=== PATIENT | male | born 1955 | race Caucasian/White ===

== ENCOUNTER 2019-11-28 01:28 | Inpatient (IN) ==
[2019-11-28] MEDS ORDERED: ONDANSETRON INJ 2 MG/ML 2 ML VIAL IV STA (01:52)
[2019-11-28 02:08] LABS: Basophils # (auto) 0.02 K/uL (0-0.2); Basophils % (auto) 0.2 %; Eosinophils # (auto) 0.19 K/uL (0-0.5); Eosinophils % (auto) 2.1 %; Hemoglobin 14.7 g/dL (14.0-18.0); Immature Granulocytes # (auto) 0.02 K/uL (0.00-0.02); Immature Granulocytes % (auto) 0.2 %; Lymphocytes # (auto) 0.91 K/uL (1.2-3.4); Lymphocytes % (auto) 10.1 %; Mean Corpuscular Hemoglobin 28.4 pg (25-34); Mean Corpuscular Hgb Conc 34.2 g/dL (32-36); Mean Platelet Volume 9.7 fL (7.4-10.4); Monocytes # (auto) 0.64 K/uL (0.11-0.59); Monocytes % (auto) 7.1 %; Neutrophils # (auto) 7.22 K/uL (1.4-6.5); Neutrophils % (auto) 80.3 %; Platelet Count 187 K/uL (130-400); RDW Coefficient of Variation 14.3 % (11.5-14.5); RDW Standard Deviation 43.2 fL (36.4-46.3); Red Blood Count 5.18 M/uL (4.7-6.1)
[2019-11-28 02:27] LABS: Albumin Level 3.2 gm/dl (3.4-5.0); BUN Creatinine Ratio 12.7 (10-20); Calcium 9.4 mg/dl (8.5-10.1); Creatinine Clr Calc Pharmacy 89.8 ml/min; Est GFR (African American) 78.1; Est GFR (Non-African American) 67.4; Potassium 3.8 mmol/L (3.5-5.1)
[2019-11-28 02:33] LABS: Albumin Globulin Ratio 0.9 (0.9-2); Bilirubin,Total 0.7 mg/dl (0.2-1); Globulin 3.4 gm/dl (2.5-4.0); Total Protein 6.6 gm/dl (6.4-8.2); Troponin I 0.017 ng/ml (0-0.045)
[2019-11-28 02:55] LABS: Appearance Urine Clear (Clear); Bilirubin Urine Negative (Negative); Blood Urine Negative (Negative); Color Urine Yellow; Glucose Urine UA Negative (Negative); Ketones Urine Negative (Negative); Leukocyte Esterase Urine Negative (Negative); Nitrite Urine Negative (Negative); Protein Urine Negative (Negative); Specific Gravity Urine 1.018 (1.000-1.030); Urobilinogen Urine Negative (Negative); pH Urine 6.5 (4.5-7.5)
[2019-11-28] MEDS ORDERED: ACETAMINOPHEN 1,000 MG/100 ML VIAL IV STA (03:06)
[2019-11-28] MEDS ORDERED: SODIUM CHLORIDE 0.9% 1000ML 1,000 ML IV ONE (03:06)
[2019-11-28] MEDS ORDERED: IOVERSOL 100ml IV PRN (03:49)
[2019-11-28] MEDS ORDERED: DICYCLOMINE HCL 10 MG/ML 2 ML AMP/VIAL IM ONE (05:07)
[2019-11-28] MEDS ORDERED: METOCLOPRAMIDE HCL INJ 5 MG/ML 2 ML VIAL IV ONE (05:43)
--- NOTE | 2019-11-28 06:17 | Emergency Department Note ---
Entered by Ricky Mina acting as a scribe for History of Present Illness General Chief complaint: Abdominal Pain Stated complaint: ABDOMINAL PAIN Time Seen by Provider: 11/28/19 02:39 Source: patient History of Present Illness Provider complaint: Abdominal pain Onset (ago): hour(s) 8 Location: abdomen Radiation: non-radiation Severity: similar to prior episodes Pain Consistency: + constant Maximum Pain Intensity: 8 Current Pain Intensity: 8 Associated symptoms: + denies other symptoms (Urinary symptoms) and + nausea/vomiting The patient is a 64 year old male who presents to the Emergency Room with complaints of constant abdominal pain that started this evening about 8 hours ago. The patient rates the pain as an 8/10 and notes it does not radiate anywhere. The patient reports that he had a colonoscopy this morning where he had 2 polyps removed. The patient states that one polyp was difficult for them to remove but he did not have any pain immediately after the procedure. The patient adds that he was able to eat twice after the procedure with no issues. The patient states that he passed a lot of gas after the procedure but he still feels as though he has a lot of gas in his abdomen. The patient mentioned that he called the on-call doctor who referred him here. The patient endorses nausea and notes he has been dry heaving when the pain is bad. The patient states he tried to take a warm bath to relieve his symptoms but this only helped for about 15 minutes. The patient denies any fevers or urinary symptoms. Home Medications Home Medications Medication Instructions Recorded Confirmed Type carvedilol 3.125 mg PO BID 11/28/19 11/28/19 History losartan 50 mg PO BID 11/28/19 11/28/19 History triamcinolone acetonide TOPICAL PRN 11/28/19 History Allergies Allergy/AdvReac Type Severity Reaction Status Date / Time No Known Allergies Allergy Unverified 11/28/19 01:37 Past Med/Surg History Medical History Abdominal pain (Acute) Hypertension Obesity Surgical History History of Achilles tendon repair S/P colonoscopy (Inactive) Family History Father Cancer Colon cancer Social History Preferred Language: Yi Communication Ability: Effective [place] Required: No Beliefs That Will Affect Care: None Current Living Situation: Spouse Feels Safe at Home: Yes Smoking Status: Former smoker Hx Alcohol Use: No Hx Substance Use: No Review of Systems See HPI for pertinent positives & negatives. and A total of 10 systems reviewed and were otherwise negative Physical Exam Vital Signs Vital Signs - 24 hr 11/28/19 01:34 11/28/19 01:57 11/28/19 02:43 Temperature 36.8 C Temperature Source Oral Pulse Rate 53 L 53 L 48 L Pulse Rate [Right Finger] Respiratory Rate 20 20 14 Respiratory Effort / Characteristics Non-Labored Spontaneous Respiratory Depth Normal Respiratory Pattern Blood Pressure 202/94 H 178/88 H Blood Pressure [Left Arm] Blood Pressure Mean 130 103 Blood Pressure Mean [Left Arm] Blood Pressure Position Sitting Blood Pressure Position [Left Arm] Pulse Oximetry 97 97 Oxygen Delivery Method Room Air Room Air Sepsis Recent Fever Within 48 Hours No Sepsis Action Taken by Nursing No Action Required 11/28/19 03:00 11/28/19 03:29 11/28/19 03:30 Temperature Temperature Source Pulse Rate 53 L 52 L Pulse Rate [Right Finger] 49 L Respiratory Rate 19 20 16 Respiratory Effort / Characteristics Non-Labored Spontaneous Respiratory Depth Normal Respiratory Pattern Regular Blood Pressure Blood Pressure [Left Arm] 190/88 H Blood Pressure Mean Blood Pressure Mean [Left Arm] 122 Blood Pressure Position Blood Pressure Position [Left Arm] Sitting Pulse Oximetry 96 Oxygen Delivery Method Room Air Sepsis Recent Fever Within 48 Hours Sepsis Action Taken by Nursing 11/28/19 03:46 11/28/19 04:07 11/28/19 04:08 Temperature Temperature Source Pulse Rate 52 L 54 L 57 L Pulse Rate [Right Finger] Respiratory Rate 22 21 15 Respiratory Effort / Characteristics Respiratory Depth Respiratory Pattern Blood Pressure 190/88 H 206/98 H Blood Pressure [Left Arm] Blood Pressure Mean 127 128 Blood Pressure Mean [Left Arm] Blood Pressure Position Blood Pressure Position [Left Arm] Pulse Oximetry Oxygen Delivery Method Sepsis Recent Fever Within 48 Hours Sepsis Action Taken by Nursing 11/28/19 04:30 11/28/19 05:17 11/28/19 07:08 Temperature Temperature Source Pulse Rate 56 L Pulse Rate [Right Finger] 49 L 48 L Respiratory Rate 13 16 16 Respiratory Effort / Characteristics Non-Labored Spontaneous Respiratory Depth Normal Respiratory Pattern Regular Blood Pressure Blood Pressure [Left Arm] 156/70 H 169/91 H Blood Pressure Mean Blood Pressure Mean [Left Arm] 98 117 Blood Pressure Position Blood Pressure Position [Left Arm] Sitting Pulse Oximetry 96 97 Oxygen Delivery Method Room Air Room Air Sepsis Recent Fever Within 48 Hours Sepsis Action Taken by Nursing 11/28/19 08:35 11/28/19 09:34 Temperature Temperature Source Pulse Rate Pulse Rate [Right Finger] 48 L 47 L Respiratory Rate 16 16 Respiratory Effort / Characteristics Respiratory Depth Respiratory Pattern Blood Pressure Blood Pressure [Left Arm] 189/88 H 189/99 H Blood Pressure Mean Blood Pressure Mean [Left Arm] 121 129 Blood Pressure Position Blood Pressure Position [Left Arm] Pulse Oximetry 98 96 Oxygen Delivery Method Room Air Room Air Sepsis Recent Fever Within 48 Hours Sepsis Action Taken by Nursing GENERAL: alert, well appearing, well nourished, no distress, non-toxic EYE EXAM: normal conjunctiva, PERRL and EOM's grossly intact OROPHARYNX: no exudate, no erythema, lips, buccal mucosa, and tongue normal and mucous membranes are moist NECK: supple, no nuchal rigidity, no adenopathy, non-tender LUNGS: Clear to auscultation. Normal chest wall mechanics HEART: no murmurs, S1 normal and S2 normal ABDOMEN: abdomen soft, left sided abdominal tenderness, dull to percussion, normo-active bowel sounds, no masses, no rebound or guarding. BACK: Back is symmetrical on inspection and there is no deformity, no midline tenderness, no CVA tenderness. SKIN: no rashes and no bruising UPPER EXTREMITIES: upper extremities are grossly normal. FROM, nml pulses b/l. LOWER EXTREMITIES: No pitting edema. FROM, nml pulses b/l. NEURO EXAM: Normal sensorium, cranial nerves II-XII grossly intact, normal speech, no gross weakness of arms, no gross weakness of legs. Course Course 0257: Past medical records reviewed. The patient was evaluated in room C03, and a complete history and physical examination were performed. 0531: I reevaluated the patient and he is still experiencing pain. 0645: Patient still having pain. Updated on results. 0800: Patient updated on over read by radiology. Still having pain. Is passing gas. 0807: Discussed with radiology there morning read. Nonocclusive thrombus appears old. They are more concerned about evolving cholecystitis. 0815: Discussed the case with Dr. Beyer, general surgery on-call. 0940: Pt awaiting HIDA scan. Dr. Beyer has seen the patient at bedside. Pt aware of plan. Pt signed out to Dr. Lenz pending HIDA and disposition. Administered Medications Carvedilol (Coreg) 3.125 mg PO BID CAPRI Stop: 12/28/19 15:29 Last Admin: 11/29/19 20:32 Dose: Not Given Documented by: [id number] Admin: 11/29/19 08:37 Dose: 3.125 mg Documented by: [id number] Admin: 11/28/19 22:59 Dose: 3.125 mg Documented by: [id number] Admin: 11/28/19 17:05 Dose: 3.125 mg Documented by: [id number] Piperacillin Sod/Tazobactam (Sod 4.5 gm/ Dextrose) 120 mls @ 28.75 mls/hr IV Q8H CAPRI; Protocol Stop: 12/08/19 19:59 Last Admin: 11/29/19 20:35 Dose: 28.8 mls/hr Documented by: [id number] Infusion: 11/29/19 16:50 Dose: 0 mls/hr Documented by: [id number] Admin: 11/29/19 12:03 Dose: 28.8 mls/hr Documented by: [id number] Infusion: 11/29/19 07:13 Dose: 0 mls/hr Documented by: [id number] Admin: 11/29/19 03:50 Dose: 28.8 mls/hr Documented by: [id number] Infusion: 11/28/19 23:30 Dose: 0 mls/hr Documented by: [id number] Admin: 11/28/19 19:32 Dose: 28.8 mls/hr Documented by: [id number] Lactated Ringer's (Lr) 1,000 mls @ 80 mls/hr IV .[id number] CAPRI Stop: 12/29/19 13:29 Last Admin: 11/29/19 14:43 Dose: 80 mls/hr Documented by: [id number] Ketorolac Tromethamine (Toradol) 15 mg IV Q6H PRN PRN Reason: Pain Stop: 12/03/19 15:13 Last Admin: 11/28/19 16:30 Dose: 15 mg Documented by: [id number] Losartan Potassium (Cozaar) 50 mg PO BID CAPRI Stop: 12/28/19 15:29 Last Admin: 11/29/19 08:38 Dose: 50 mg Documented by: [id number] Admin: 11/28/19 22:59 Dose: 50 mg Documented by: [id number] Admin: 11/28/19 17:05 Dose: 50 mg Documented by: [id number] Oxycodone/Acetaminophen (Percocet 5mg/325mg) 1 tab PO Q4H PRN PRN Reason: MODERATE Pain (Scale 4,5,6) Stop: 12/12/19 22:47 Last Admin: 11/29/19 18:12 Dose: 1 tab Documented by: [id number] Admin: 11/29/19 12:36 Dose: 1 tab Documented by: [id number] Discontinued Medications Bupivacaine HCl (Marcaine 0.5% Mpf) Confirm Administered Dose 30 ml .ROUTE .STK- MED ONE Stop: 11/28/19 19:17 Last Admin: 11/28/19 20:19 Dose: 30 ml Documented by: [id number] Bupivacaine HCl (Marcaine 0.5% Mpf) Confirm Administered Dose 30 ml .ROUTE .STK- MED ONE Stop: 11/28/19 21:31 Last Admin: 11/28/19 22:51 Dose: Not Given Documented by: [id number] Dicyclomine HCl (Bentyl) 20 mg IM NOW ONE Stop: 11/28/19 05:08 Last Admin: 11/28/19 05:17 Dose: 20 mg Documented by: [id number] Fentanyl Citrate (Fentanyl Citrate) 50 mcg IV Q15M PRN PRN Reason: Pain Stop: 12/12/19 08:17 Last Admin: 11/28/19 08:33 Dose: 50 mcg Documented by: [id number] Acetaminophen (Ofirmev) 1,000 mg in 100 mls @ 400 mls/hr IV NOW STA Stop: 11/28/19 03:20 Last Infusion: 11/28/19 04:41 Dose: 0 mls/hr Documented by: [id number] Admin: 11/28/19 03:41 Dose: 400 mls/hr Documented by: [id number] Sodium Chloride (Nss 1000ml) 1,000 mls @ 999 mls/hr IV .[id number] ONE Stop: 11/28/19 04:06 Last Infusion: 11/28/19 04:41 Dose: 0 mls/hr Documented by: [id number] Admin: 11/28/19 03:41 Dose: 999 mls/hr Documented by: [id number] Lactated Ringer's (Lr) 1,000 mls @ 80 mls/hr IV .[id number] CAPRI Stop: 11/29/19 03:43 Last Infusion: 11/29/19 15:03 Dose: 0 mls/hr Documented by: [id number] Infusion: 11/28/19 23:30 Dose: 80 mls/hr Documented by: [id number] Infusion: 11/28/19 22:51 Dose: 80 mls/hr Documented by: [id number] Infusion: 11/28/19 19:25 Dose: 0 mls/hr Documented by: [id number] Admin: 11/28/19 17:25 Dose: 80 mls/hr Documented by: [id number] Piperacillin Sod/Tazobactam (Sod 4.5 gm/ Dextrose) 120 mls @ 200 mls/hr IV ONE ONE; Protocol Stop: 11/28/19 16:05 Last Infusion: 11/28/19 17:27 Dose: 0 mls/hr Documented by: [id number] Admin: 11/28/19 16:51 Dose: 200 mls/hr Documented by: [id number] Ioversol (Optiray 320 100ml) 92 ml IV ONCE PRN PRN Reason: Interaction Checking Stop: 12/02/19 03:48 Last Admin: 11/28/19 03:50 Dose: 1 ml Documented by: [id number] Ketorolac Tromethamine (Toradol) 15 mg IV Q6H PRN PRN Reason: Pain Stop: 12/03/19 09:40 Last Admin: 11/28/19 09:57 Dose: 15 mg Documented by: [id number] Metoclopramide HCl (Reglan) 5 mg IV ONE ONE Stop: 11/28/19 05:44 Last Admin: 11/28/19 05:47 Dose: 5 mg Documented by: [id number] Morphine Sulfate (Morphine Sulfate) 2 mg IV NOW STA Stop: 11/28/19 13:35 Last Admin: 11/28/19 14:21 Dose: 2 mg Documented by: [id number] Ondansetron HCl (Zofran) 4 mg IV NOW STA Stop: 11/28/19 01:53 Last Admin: 11/28/19 02:14 Dose: 4 mg Documented by: [id number] Medical Decision Making Differential Diagnosis Differential diagnoses includes but is not limited to post-procedural complications, gastritis, peptic ulcer disease, GERD, gallbladder disease, pancreatitis, small bowel obstruction, acute coronary syndrome, pericarditis, ischemic bowel, irritable bowel disease, irritable bowel syndrome, appendicitis, diverticulitis, malignancy, hernia, urinary tract infection, torsion, /ectopic , perforation, trauma, infectious. Medical Records Attestation: I reviewed the patient's medical records. Home Medications Current Medication List: was personally reviewed by me Laboratory Data Attestation: I reviewed the patient's lab results. Result diagrams: 11/29/19 06:33 11/29/19 06:33 Lab Results 11/28/19 11/28/19 11/28/19 Range/Units 01:55 01:55 02:45 WBC 9.00 (4.8-10.8) K/uL RBC 5.18 (4.7-6.1) M/uL Hgb 14.7 (14.0-18.0) g/dL Hct 43.0 (42-52) % MCV 83.0 (80-100) fL MCH 28.4 (25-34) pg MCHC 34.2 (32-36) g/dL RDW Std Deviation 43.2 (36.4-46.3) fL RDW Coeff of Nydia 14.3 (11.5-14.5) % Plt Count 187 (130-400) K/uL MPV 9.7 (7.4-10.4) fL Immature Gran % (Auto) 0.2 % Neut % (Auto) 80.3 % Lymph % (Auto) 10.1 % [place] % (Auto) 7.1 % Eos % (Auto) 2.1 % Baso % (Auto) 0.2 % Immature Gran # (Auto) 0.02 (0.00-0.02) K/uL Neut # (Auto) 7.22 H (1.4-6.5) K/uL Lymph # (Auto) 0.91 L (1.2-3.4) K/uL [place] # (Auto) 0.64 H (0.11-0.59) K/uL Eos # (Auto) 0.19 (0-0.5) K/uL Baso # (Auto) 0.02 (0-0.2) K/uL Sodium 140 (136-145) mmol/L Potassium 3.8 (3.5-5.1) mmol/L Chloride 108 H (98-107) mmol/L Carbon Dioxide 26 (21-32) mmol/L Anion Gap 6.0 (3-11) BUN 14 (7-18) mg/dl Creatinine 1.13 (0.6-1.4) mg/dl Est Cr Clr Drug Dosing 89.8 ml/min Est GFR ( Amer) 78.1 Est GFR (Non-Af Amer) 67.4 BUN/Creatinine Ratio 12.7 (10-20) Glucose 138 H (70-99) mg/dl Lactate (0.4-2.0) mmol/L Calcium 9.4 (8.5-10.1) mg/dl Total Bilirubin 0.7 (0.2-1) mg/dl AST 13 L (15-37) U/L ALT 25 (12-78) U/L Alkaline Phosphatase 47 (45-117) U/L Troponin I 0.017 (0-0.045) ng/ml Total Protein 6.6 (6.4-8.2) gm/dl Albumin 3.2 L (3.4-5.0) gm/dl Globulin 3.4 (2.5-4.0) gm/dl Albumin/Globulin Ratio 0.9 (0.9-2) Lipase 163 (73-393) U/L Urine Color Yellow Urine Appearance Clear (Clear) Urine pH 6.5 (4.5-7.5) Ur Specific [place] 1.018 (1.000-1.030) Urine Protein Negative (Negative) Urine Glucose (UA) Negative (Negative) Urine Ketones Negative (Negative) Urine Blood Negative (Negative) Urine Nitrite Negative (Negative) Urine Bilirubin Negative (Negative) Urine Urobilinogen Negative (Negative) Ur Leukocyte Esterase Negative (Negative) 11/28/19 Range/Units 08:57 WBC (4.8-10.8) K/uL RBC (4.7-6.1) M/uL Hgb (14.0-18.0) g/dL Hct (42-52) % MCV (80-100) fL MCH (25-34) pg MCHC (32-36) g/dL RDW Std Deviation (36.4-46.3) fL RDW Coeff of Nydia (11.5-14.5) % Plt Count (130-400) K/uL MPV (7.4-10.4) fL Immature Gran % (Auto) % Neut % (Auto) % Lymph % (Auto) % [place] % (Auto) % Eos % (Auto) % Baso % (Auto) % Immature Gran # (Auto) (0.00-0.02) K/uL Neut # (Auto) (1.4-6.5) K/uL Lymph # (Auto) (1.2-3.4) K/uL [place] # (Auto) (0.11-0.59) K/uL Eos # (Auto) (0-0.5) K/uL Baso # (Auto) (0-0.2) K/uL Sodium (136-145) mmol/L Potassium (3.5-5.1) mmol/L Chloride (98-107) mmol/L Carbon Dioxide (21-32) mmol/L Anion Gap (3-11) BUN (7-18) mg/dl Creatinine (0.6-1.4) mg/dl Est Cr Clr Drug Dosing ml/min Est GFR ( Amer) Est GFR (Non-Af Amer) BUN/Creatinine Ratio (10-20) Glucose (70-99) mg/dl Lactate 1.1 (0.4-2.0) mmol/L Calcium (8.5-10.1) mg/dl Total Bilirubin (0.2-1) mg/dl AST (15-37) U/L ALT (12-78) U/L Alkaline Phosphatase (45-117) U/L Troponin I (0-0.045) ng/ml Total Protein (6.4-8.2) gm/dl Albumin (3.4-5.0) gm/dl Globulin (2.5-4.0) gm/dl Albumin/Globulin Ratio (0.9-2) Lipase (73-393) U/L Urine Color Urine Appearance (Clear) Urine pH (4.5-7.5) Ur Specific [place] (1.000-1.030) Urine Protein (Negative) Urine Glucose (UA) (Negative) Urine Ketones (Negative) Urine Blood (Negative) Urine Nitrite (Negative) Urine Bilirubin (Negative) Urine Urobilinogen (Negative) Ur Leukocyte Esterase (Negative) Imaging Data Radiologist's Impression: Radiology results as stated below per my review and the radiologist's interpretation: CT ABDOMEN & PELVIS With Contrast: There is mild fatty infiltration of the liver. No focal liver lesion is seen. The gallbladder is distended. Mild acute cholecystitis cannot be excluded. If indicated consider ultrasound fo r better characterization. The pancreas, spleen, adrenal glands, and kidneys appear nonacute. There are nonobstructive calyceal calculi in both kidneys measuring up to 5 mm. No hydronephrosis or ureterolithiasis. There is diverticulosis of the lower left and sigmoid colon. No acute inflammatory changes are seen involving the bowel. There are mild to moderate multilevel degenerative changes throughout the lower thoracic and lumbar spine including chronic appearing pars defects at L5 and grade 2 s pondylolisthesis. No spinal stenosis but there is severe bilateral neuroforaminal narrowing at that level. Radiologist: Caden Gross MD Study ready at 04:10 and initial results transmitted at 04:31 Blood Pressure Blood Pressure Findings: Elevated blood pressure Blood Pressure Disposition: Referred to patients primary care provider [facility] Narrative Patient here due to concern for worsening pain status post colonoscopy. Patient states symptoms after his colonoscopy are atypical as he has never had any problems during prior colonoscopies. Patient was afebrile and hemodynamically stable. Patient's labs are reassuring. Initial CT of the abdomen and pelvis did not show any evidence for perforation, bowel obstruction, or bleeding, however there was suggestion of possible evolving cholecystitis. Given patient's pain was in the left lateral mid abdomen and left lower quadrant, this seemed atypical so an additional ultrasound was ordered. Ultrasound was strongly suggestive of this as well. Upon our in-house radiologist over reading I received a phone call that they were also concerned about evolving cholecystitis. Given patient was continuing to have pain although it was still predominantly on the left side, case was discussed with general surgery on-call. They recommended ordering HIDA scan. Patient signed out to Dr. Lenz awaiting HIDA scan and final disposition by surgery. Patient was seen and evaluated in the emergency room by Dr. Beyer. Patient was kept up-to-date on all results and plan, and was in agreement. Patient given several different medications for his pain which only provided minor temporary relief. Patient never had an acute surgical abdomen. Patient remained afebrile and hemodynamically stable despite ongoing pain. Impression & Plan Abdominal pain, S/P colonoscopy, Acute calculous cholecystitis Discharge Plan Visit Data *Final* Discharge Date/Time: 11/28/19 12:30 Chief Complaint: Abdominal Pain Stated Complaint: ABDOMINAL PAIN ED Provider: Leonel Lenz Discharge Problem: Abdominal pain, S/P colonoscopy, Acute calculous cholecystitis Patient Disposition: Admitted As Inpatient Condition: Good Discharge Instructions Interventions: ED Discharge Assessment Last Done: 11/28/19 12:30 Discharge Problem: Abdominal pain Qualifiers: Abdominal location: left upper quadrant Qualified Code(s): R10.12 - Left upper quadrant pain The scribe's documentation has been prepared under my direction and personally reviewed by me in its entirety. I confirm that the note above accurately reflects all work, treatment, procedures, and medical decision making performed by me.
--- NOTE | 2019-11-28 07:07 | CT Scan Report ---
ABDOMEN AND PELVIS CT WITH IV CONTRAST CT DOSE: 1494.41 mGy.cm HISTORY: incr abd pain s/p colonoscopy TECHNIQUE: Multiaxial CT images of the abdomen and pelvis were performed following the use of intrave nous contrast. A dose lowering technique was utilized adhering to the principles of ALARA. COMPARISON STUDY: None. FINDINGS: The lung bases are clear. No pneumoperitoneum. No pneumatosis. Bilateral L5 spondylolysis. No hepatic or splenic masses. The adrenal glands and pancreas are unremarkable. The gallbladder is mi ldly distended. There is mild inflammatory change surrounding the gallbladder. This is suspicious for acute cholecystitis. A few subcentimeter bilateral renal hypodense lesions. These are technically to o small to characterize. There are multiple punctate bilateral renal calculi. No ureteral stones. No hydronephrosis. No retroperitoneal lymphadenopathy. Small focus of nonocclusive thrombus within the p roximal superior mesenteric vein best seen on image 148. Tiny fat-containing umbilical hernia. Normal bladder. The prostate gland is mildly enlarged. Colonic diverticulosis. No evidence for diverticulit is. No bowel wall thickening or obstruction. Normal appendix. IMPRESSION: 1. Inflammatory change surrounding the mildly distended gallbladder. This is suspicious for acute cho lecystitis. Clinical correlation recommended. 2. Small focus of nonocclusive thrombus within the proximal superior mesenteric vein. 3. Bilateral nephrolithiasis. No hydronephrosis. 4. No bowel wall thickening or obstruction. 5. Colonic diverticulosis. 6. These findings were called/faxed to the emergency Department following dictation. ACT 112: Negative or not required by law. Electronically signed by: Kirk Carias M.D. 11/28/2019 7:06 AM
[2019-11-28] MEDS ORDERED: fentaNYL citrate 100 MCG/2 ML VIAL IV PRN ×2 (08:18→19:30)
[2019-11-28] MEDS ORDERED: KETOROLAC TROMETHAMINE 15 MG/ML VIAL IV PRN ×2 (09:41→15:14)
--- NOTE | 2019-11-28 09:47 | Emergency Department Note ---
ED Visit Note 0946: Signout from Dr. beltran. 64-year-old male with abdominal pain status post colonoscopy. Patient having pain on the left side. CT of the abdomen showed possible cholecystitis. General surgery was consulted Dr. Beyer. Dr. Beyer requested HIDA scan. Dr. Beyer evaluated the patient at bedside. Follow-up on HIDA scan and reevaluate with general surgery after HIDA scan results back for disposition. 1100: Vital signs stable. On repeat abdominal exam, the patient has no pain on palpation of the right upper quadrant. HIDA scan is not scheduled till noon. I had a discussion with Dr. Beyer who agrees that she does not think the patient has acute cholecystitis based on physical exam. I agree with her assessment. Given this, both she and I feel like the patient should be evaluated by GI despite with the findings of the HIDA scan are. Therefore patient will be admitted to the hospitalist service with GI consult. HIDA scan will be conducted prior to patient going upstairs. . : Abdominal pain Qualifiers: Abdominal location: left upper quadrant Qualified Code(s): R10.12 - Left upper quadrant pain
--- NOTE | 2019-11-28 09:51 | Surgery Consultation ---
Date of Consultation November 28, 2019 Assessment & Plan (1) Abdominal pain: 64 yr old man with acute left sided/ generalized abdominal pain following colonoscopy and polypectomy yesterday. CT scan suggestive of possible acute cholecystitis but his symptoms/ exam are not consistent with this finding - I would recommend a HIDA scan to rule out gallbladder blockage. If HIDA is negative, consider medicine/ GI consult to rule out postpolypectomy syndrome. No evidence of perforation on imaging. If HIDA shows acute cholecystitis, we discussed that the treatment would involve laparoscopic cholecystectomy. This procedure, expected recovery and risks of bleeding, infection, conversion to open, bile leak or retained sludge/ stone requiring ercp, diarrhea and food intolerances were reviewed. Will await HIDA result. Present on Admission?: Yes History of Present Illness Reason for Consultation: Bernarda Mckeon MD Requesting Physician: Bernarda Mckeon MD History of Present Illness 64 yr old man who underwent routine screening colonoscopy yesterday with Dr. Gresham. Had two polyps removed and was told one of these was more challenging to remove. Did well initially but pain started about 6 hrs after procedure. Was able to eat, walked around but the pain did not relent and increased in severity. Burning type of pain, starts on left side of abdomen and moves over to the right, at times a band across mid to lower abdomen. Associated with dry heaves, no fevers/ chills. Able to pass gas but this did not change symptoms and in fact, seemed to worsen the pain. Relieved slightly with pain medications but still about a 6/10 intensity. Allergies Allergy/AdvReac Type Severity Reaction Status Date / Time No Known Allergies Allergy Unverified 11/28/19 01:37 Home Medications Home Medications Medication Instructions Recorded Confirmed Type carvedilol 3.125 mg PO BID 11/28/19 11/28/19 History losartan 50 mg PO BID 11/28/19 11/28/19 History triamcinolone acetonide TOPICAL PRN 11/28/19 History Patient History Medical History (Updated 11/28/19 @ 09:48 by Summer Beyer MD) Abdominal pain (Acute) Hypertension Obesity Surgical History S/P colonoscopy (Inactive) Family History Other No pertinent family history in first degree relatives Social History Feels Safe at Home: Yes Smoking Status: Never smoker Review of Systems Review of Systems: All systems reviewed & are unremarkable except as noted in HPI & below cardiac: had palpitations, heart beating "too strongly" after returning from [facility] a year ago. Diagnosed with HTN, occasional PVCs. Stress test done was negative by his report. Physical Exam Constitutional: + acute distress (appears uncomfortable) and + obese Eyes: PERRL, conjunctivae normal, anicteric sclerae ENMT: Ears: no hearing impairment and no external ear abnormality Neck: normal visual inspection Respiratory: normal respiratory effort, lungs clear to auscultation Cardiovascular: RRR, no murmur, no edema Gastrointestinal (Abdomen): Inspection/Auscultation: + abdomen distended and normal bowel sounds Percussion/Palpation: + abdomen tender (does not hurt with palpation but overall makes the discomfort worse) and abdomen soft; no guarding and no abdominal mass no RUQ tenderness, no Maciel's sign Musculoskeletal: no cyanosis or clubbing, extremities motor strength 5/5 Neurologic: moves all extremities; no focal motor deficits Psychiatric: A+Ox3, euthymic affect Results & Data Vital Signs (Past 12 Hours) Vital Signs Temp Pulse Pulse Resp BP BP Pulse Ox 11/28/19 09:34 47 L 16 189/99 H 96 11/28/19 08:35 48 L 16 189/88 H 98 11/28/19 07:08 48 L 16 169/91 H 97 11/28/19 05:17 49 L 16 156/70 H 96 11/28/19 04:30 56 L 13 11/28/19 04:08 57 L 15 206/98 H 11/28/19 04:07 54 L 21 11/28/19 03:46 52 L 22 190/88 H 11/28/19 03:30 52 L 16 11/28/19 03:29 49 L 20 190/88 H 96 11/28/19 03:00 53 L 19 11/28/19 02:43 48 L 14 178/88 H 11/28/19 01:57 53 L 20 97 11/28/19 01:34 36.8 C 53 L 20 202/94 H 97 Laboratory Results 0211/28/19 11/28/19 Range/Units 08:57 02:45 01:55 WBC (4.8-10.8) K/uL RBC (4.7-6.1) M/uL Hgb (14.0-18.0) g/dL Hct (42-52) % MCV (80-100) fL MCH (25-34) pg MCHC (32-36) g/dL RDW Std Deviation (36.4-46.3) fL RDW Coeff of Nydia (11.5-14.5) % Plt Count (130-400) K/uL MPV (7.4-10.4) fL Immature Gran % (Auto) % Neut % (Auto) % Lymph % (Auto) % [place] % (Auto) % Eos % (Auto) % Baso % (Auto) % Immature Gran # (Auto) (0.00-0.02) K/uL Neut # (Auto) (1.4-6.5) K/uL Lymph # (Auto) (1.2-3.4) K/uL [place] # (Auto) (0.11-0.59) K/uL Eos # (Auto) (0-0.5) K/uL Baso # (Auto) (0-0.2) K/uL Sodium 140 (136-145) mmol/L Potassium 3.8 (3.5-5.1) mmol/L Chloride 108 H (98-107) mmol/L Carbon Dioxide 26 (21-32) mmol/L Anion Gap 6.0 (3-11) BUN 14 (7-18) mg/dl Creatinine 1.13 (0.6-1.4) mg/dl Est Cr Clr Drug Dosing 89.8 ml/min Est GFR ( Amer) 78.1 Est GFR (Non-Af Amer) 67.4 BUN/Creatinine Ratio 12.7 (10-20) Glucose 138 H (70-99) mg/dl Lactate 1.1 (0.4-2.0) mmol/L Calcium 9.4 (8.5-10.1) mg/dl Total Bilirubin 0.7 (0.2-1) mg/dl AST 13 L (15-37) U/L ALT 25 (12-78) U/L Alkaline Phosphatase 47 (45-117) U/L Troponin I 0.017 (0-0.045) ng/ml Total Protein 6.6 (6.4-8.2) gm/dl Albumin 3.2 L (3.4-5.0) gm/dl Globulin 3.4 (2.5-4.0) gm/dl Albumin/Globulin Ratio 0.9 (0.9-2) Lipase 163 (73-393) U/L Urine Color Yellow Urine Appearance Clear (Clear) Urine pH 6.5 (4.5-7.5) Ur Specific [place] 1.018 (1.000-1.030) Urine Protein Negative (Negative) Urine Glucose (UA) Negative (Negative) Urine Ketones Negative (Negative) Urine Blood Negative (Negative) Urine Nitrite Negative (Negative) Urine Bilirubin Negative (Negative) Urine Urobilinogen Negative (Negative) Ur Leukocyte Esterase Negative (Negative) 11/28/19 Range/Units 01:55 WBC 9.00 (4.8-10.8) K/uL RBC 5.18 (4.7-6.1) M/uL Hgb 14.7 (14.0-18.0) g/dL Hct 43.0 (42-52) % MCV 83.0 (80-100) fL MCH 28.4 (25-34) pg MCHC 34.2 (32-36) g/dL RDW Std Deviation 43.2 (36.4-46.3) fL RDW Coeff of Nydia 14.3 (11.5-14.5) % Plt Count 187 (130-400) K/uL MPV 9.7 (7.4-10.4) fL Immature Gran % (Auto) 0.2 % Neut % (Auto) 80.3 % Lymph % (Auto) 10.1 % Eddy % (Auto) 7.1 % Eos % (Auto) 2.1 % Baso % (Auto) 0.2 % Immature Gran # (Auto) 0.02 (0.00-0.02) K/uL Neut # (Auto) 7.22 H (1.4-6.5) K/uL Lymph # (Auto) 0.91 L (1.2-3.4) K/uL Eddy # (Auto) 0.64 H (0.11-0.59) K/uL Eos # (Auto) 0.19 (0-0.5) K/uL Baso # (Auto) 0.02 (0-0.2) K/uL Sodium (136-145) mmol/L Potassium (3.5-5.1) mmol/L Chloride (98-107) mmol/L Carbon Dioxide (21-32) mmol/L Anion Gap (3-11) BUN (7-18) mg/dl Creatinine (0.6-1.4) mg/dl Est Cr Clr Drug Dosing ml/min Est GFR ( Amer) Est GFR (Non-Af Amer) BUN/Creatinine Ratio (10-20) Glucose (70-99) mg/dl Lactate (0.4-2.0) mmol/L Calcium (8.5-10.1) mg/dl Total Bilirubin (0.2-1) mg/dl AST (15-37) U/L ALT (12-78) U/L Alkaline Phosphatase (45-117) U/L Troponin I (0-0.045) ng/ml Total Protein (6.4-8.2) gm/dl Albumin (3.4-5.0) gm/dl Globulin (2.5-4.0) gm/dl Albumin/Globulin Ratio (0.9-2) Lipase (73-393) U/L Urine Color Urine Appearance (Clear) Urine pH (4.5-7.5) Ur Specific [place] (1.000-1.030) Urine Protein (Negative) Urine Glucose (UA) (Negative) Urine Ketones (Negative) Urine Blood (Negative) Urine Nitrite (Negative) Urine Bilirubin (Negative) Urine Urobilinogen (Negative) Ur Leukocyte Esterase (Negative) Diagnostic Findings FINDINGS: The lung bases are clear. No pneumoperitoneum. No pneumatosis. Bilate ral L5 spondylolysis. No hepatic or splenic masses. The adrenal glands and pancreas are unremarkable. The gallbladder is mildly distended. There is mild inflammatory change surrounding the gallbladder. This is suspicious for acute cholecystitis. A few subcentimeter bilateral renal hypodense lesions. These are technically too small to characterize. There are multiple punctate bilateral renal calculi. No ureteral stones. No hydronephrosis. No retroperitoneal lymphadenopathy. Small focus of nonocclusive thrombus within the proximal superior mesenteric vein best seen on image 148. Tiny fat-containing umbilical hernia. Normal bladder. The prostate gland is mildly enlarged. Colonic diverticulosis. No evidence for diverticulitis. No bowel wall thickening or obstruction. Normal appendix. IMPRESSION: 1. Inflammatory change surrounding the mildly distended gallbladder. This is suspicious for acute cholecystitis. Clinical correlation recommended. 2. Small focus of nonocclusive thrombus within the proximal superior mesenteric vein. 3. Bilateral nephrolithiasis. No hydronephrosis. 4. No bowel wall thickening or obstruction. 5. Colonic diverticulosis. 6. These findings were called/faxed to the emergency Department following dictation. (1) Abdominal pain Abdominal location: left upper quadrant Qualified Code(s): R10.12 - Left upper quadrant pain
--- NOTE | 2019-11-28 11:42 | History & Physical Report ---
Date of Service November 28, 2019 Assessment & Plan (1) Abdominal pain: Patient s/p colonoscopy performed yesterday with polyp removal x 2 - one 15mm polyp at the ileocecal valve with difficult and incomplete removal, one 5mm removal. CT suggestive of acute cholecystitis. Patient does not clinically appear as such. 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 No perforation. Old appearing thrombus in mesenteric vein -Admit to medical floor -HIDA scan as scheduled for 12:30 -Consult GI and General Surgery -Empiric Zosyn 3.375gm IV q 8 for possible post-polypectomy syndrome -Consider initiating oral anticoagulation x 3 months for thrombus detected on imaging -Morphine and Toradol PRN pain -Zofran PRN nausea -Colace PRN constipation Present on Admission?: Yes (2) Hypertension: Blood pressure elevated most likely secondary to pain, patient did not take his antihypertensives yet today -Continue Carvedilol -Continue Losartan -Continue to monitor F/E/N - LR at 80mL/hr x 1 liter, electrolytes WNL, NPO for now. CPAP qHS for HANNAH Ppx - SCDs/TEDs Code - Full Dispo - Admit to medical floor Present on Admission?: Yes History of Present Illness Chief Complaint: Abdominal pain Primary Care Provider: Hima Baca MD Mr. Herbert Farias is a pleasant 64yo C male with history of HTN, PVCs presenting with abdominal pain. Patient had a routine colonoscopy performed yesterday by Dr. Gresham. He had a 15mm sessile polyp in the ileocecal valve, attempted removal with the hot snare. Incomplete resection. Also with a 5mm polyp at the appendicile orifice. Patient returned home in stable condition. He reports a lot of intraabdominal air. At first he couldn't pass gas. He has severe lower abdominal pain, burning and sharp, 8/10 in severity. Mostly in LLQ. No relief with passing gas. He had some nausea with no vomiting. No BM since yesterday. CT of the abdomen concerning for acute cholecystitis. ER Course: Tylenol, Dicyclomine, Fentanyl, Toradol, Reglan, Zofran, NSS Allergies Allergy/AdvReac Type Severity Reaction Status Date / Time No Known Allergies Allergy Unverified 11/28/19 01:37 Home Medications Home Medications Medication Instructions Recorded Confirmed Type carvedilol 3.125 mg PO BID 11/28/19 11/28/19 History losartan 50 mg PO BID 11/28/19 11/28/19 History triamcinolone acetonide TOPICAL PRN 11/28/19 History Past Med/Surg History Medical History (Updated 11/28/19 @ 12:00 by Gretchen Gross DO) Abdominal pain (Acute) Hypertension Obesity Surgical History (Updated 11/28/19 @ 11:56 by Gretchen Gross DO) History of Achilles tendon repair S/P colonoscopy (Inactive) Family History (Updated 11/28/19 @ 11:57 by Gretchen Gross DO) Father Cancer Colon cancer Social History Feels Safe at Home: Yes Smoking Status: Never smoker Review of Systems Review of Systems: All systems reviewed & are unremarkable except as noted in HPI & below Physical Exam Physical Exam: General: patient resting comfortably, NAD, non-toxic in appea kristy, AA&O x 4 Skin: warm, dry, intact, no rashes or lesions HEENT: NC/AT, PERRL, EOMI, anicteric sclera, conjunctiva without injection, external ear normal to inspection and nontender, nares patent, moist mucus membranes, dentition intact, no oropharyngeal lesions, neck supple, trachea midline, no LAD, no thyromegaly, no JVD Heart: +S1/S2, regular, no m/r/g Lungs: equal air entry bilaterally, no rales/rhonchi/wheezes Abd: +BS, soft, mildly tender with deep palpation diffusely, negative Maciel's, no masses/organomegaly/ascites Ext: warm, 2+ pulses in UE/LE bilaterally, no clubbing/cyanosis or edema Neuro: nonfocal, patient AA&O x 4, speech intact, no facial droop, moving all extremities on command with equal strength 5/5 Results & Data Vital Signs (Past 12 Hours) Vital Signs Temp Pulse Pulse Resp BP BP Pulse Ox 11/28/19 11:19 51 L 20 173/88 H 93 11/28/19 09:34 47 L 16 189/99 H 96 11/28/19 08:35 48 L 16 189/88 H 98 11/28/19 07:08 48 L 16 169/91 H 97 11/28/19 05:17 49 L 16 156/70 H 96 11/28/19 04:30 56 L 13 11/28/19 04:08 57 L 15 206/98 H 11/28/19 04:07 54 L 21 11/28/19 03:46 52 L 22 190/88 H 11/28/19 03:30 52 L 16 11/28/19 03:29 49 L 20 190/88 H 96 11/28/19 03:00 53 L 19 11/28/19 02:43 48 L 14 178/88 H 11/28/19 01:57 53 L 20 97 11/28/19 01:34 36.8 C 53 L 20 202/94 H 97 Laboratory Results Lab Results 11/28/19 11/28/19 11/28/19 Range/Units 01:55 01:55 02:45 WBC 9.00 (4.8-10.8) K/uL RBC 5.18 (4.7-6.1) M/uL Hgb 14.7 (14.0-18.0) g/dL Hct 43.0 (42-52) % MCV 83.0 (80-100) fL MCH 28.4 (25-34) pg MCHC 34.2 (32-36) g/dL RDW Std Deviation 43.2 (36.4-46.3) fL RDW Coeff of Nydia 14.3 (11.5-14.5) % Plt Count 187 (130-400) K/uL MPV 9.7 (7.4-10.4) fL Immature Gran % (Auto) 0.2 % Neut % (Auto) 80.3 % Lymph % (Auto) 10.1 % [place] % (Auto) 7.1 % Eos % (Auto) 2.1 % Baso % (Auto) 0.2 % Immature Gran # (Auto) 0.02 (0.00-0.02) K/uL Neut # (Auto) 7.22 H (1.4-6.5) K/uL Lymph # (Auto) 0.91 L (1.2-3.4) K/uL [place] # (Auto) 0.64 H (0.11-0.59) K/uL Eos # (Auto) 0.19 (0-0.5) K/uL Baso # (Auto) 0.02 (0-0.2) K/uL Sodium 140 (136-145) mmol/L Potassium 3.8 (3.5-5.1) mmol/L Chloride 108 H (98-107) mmol/L Carbon Dioxide 26 (21-32) mmol/L Anion Gap 6.0 (3-11) BUN 14 (7-18) mg/dl Creatinine 1.13 (0.6-1.4) mg/dl Est Cr Clr Drug Dosing 89.8 ml/min Est GFR ( Amer) 78.1 Est GFR (Non-Af Amer) 67.4 BUN/Creatinine Ratio 12.7 (10-20) Glucose 138 H (70-99) mg/dl Lactate (0.4-2.0) mmol/L Calcium 9.4 (8.5-10.1) mg/dl Total Bilirubin 0.7 (0.2-1) mg/dl AST 13 L (15-37) U/L ALT 25 (12-78) U/L Alkaline Phosphatase 47 (45-117) U/L Troponin I 0.017 (0-0.045) ng/ml Total Protein 6.6 (6.4-8.2) gm/dl Albumin 3.2 L (3.4-5.0) gm/dl Globulin 3.4 (2.5-4.0) gm/dl Albumin/Globulin Ratio 0.9 (0.9-2) Lipase 163 (73-393) U/L Urine Color Yellow Urine Appearance Clear (Clear) Urine pH 6.5 (4.5-7.5) Ur Specific [place] 1.018 (1.000-1.030) Urine Protein Negative (Negative) Urine Glucose (UA) Negative (Negative) Urine Ketones Negative (Negative) Urine Blood Negative (Negative) Urine Nitrite Negative (Negative) Urine Bilirubin Negative (Negative) Urine Urobilinogen Negative (Negative) Ur Leukocyte Esterase Negative (Negative) 11/28/19 Range/Units 08:57 WBC (4.8-10.8) K/uL RBC (4.7-6.1) M/uL Hgb (14.0-18.0) g/dL Hct (42-52) % MCV (80-100) fL MCH (25-34) pg MCHC (32-36) g/dL RDW Std Deviation (36.4-46.3) fL RDW Coeff of Nydia (11.5-14.5) % Plt Count (130-400) K/uL MPV (7.4-10.4) fL Immature Gran % (Auto) % Neut % (Auto) % Lymph % (Auto) % [place] % (Auto) % Eos % (Auto) % Baso % (Auto) % Immature Gran # (Auto) (0.00-0.02) K/uL Neut # (Auto) (1.4-6.5) K/uL Lymph # (Auto) (1.2-3.4) K/uL [place] # (Auto) (0.11-0.59) K/uL Eos # (Auto) (0-0.5) K/uL Baso # (Auto) (0-0.2) K/uL Sodium (136-145) mmol/L Potassium (3.5-5.1) mmol/L Chloride (98-107) mmol/L Carbon Dioxide (21-32) mmol/L Anion Gap (3-11) BUN (7-18) mg/dl Creatinine (0.6-1.4) mg/dl Est Cr Clr Drug Dosing ml/min Est GFR ( Amer) Est GFR (Non-Af Amer) BUN/Creatinine Ratio (10-20) Glucose (70-99) mg/dl Lactate 1.1 (0.4-2.0) mmol/L Calcium (8.5-10.1) mg/dl Total Bilirubin (0.2-1) mg/dl AST (15-37) U/L ALT (12-78) U/L Alkaline Phosphatase (45-117) U/L Troponin I (0-0.045) ng/ml Total Protein (6.4-8.2) gm/dl Albumin (3.4-5.0) gm/dl Globulin (2.5-4.0) gm/dl Albumin/Globulin Ratio (0.9-2) Lipase (73-393) U/L Urine Color Urine Appearance (Clear) Urine pH (4.5-7.5) Ur Specific [place] (1.000-1.030) Urine Protein (Negative) Urine Glucose (UA) (Negative) Urine Ketones (Negative) Urine Blood (Negative) Urine Nitrite (Negative) Urine Bilirubin (Negative) Urine Urobilinogen (Negative) Ur Leukocyte Esterase (Negative) Diagnostic Findings ABDOMEN AND PELVIS CT WITH IV CONTRAST CT DOSE: 1494.41 mGy.cm HISTORY: incr abd pain s/p colonoscopy TECHNIQUE: Multiaxial CT images of the abdomen and pelvis were performed following the use of intravenous contrast. A dose lowering technique was utilized adhering to the principles of ALARA. COMPARISON STUDY: None. FINDINGS: The lung bases are clear. No pneumoperitoneum. No pneumatosis. Bilateral L5 spondylolysis. No hepatic or splenic masses. The adrenal glands and pancreas are unremarkable. The gallbladder is mildly distended. There is mild inflammatory change surrounding the gallbladder. This is suspicious for acute cholecystitis. A few subcentimeter bilateral renal hypodense lesions. These are technically too small to characterize. There are multiple punctate bilateral renal calculi. No ureteral stones. No hydronephrosis. No retroperitoneal lymphadenopathy. Small focus of nonocclusive thrombus within the proximal superior mesenteric vein best seen on image 148. Tiny fat-containing umbilical hernia. Normal bladder. The prostate gland is mildly enlarged. Colonic div erticulosis. No evidence for diverticulitis. No bowel wall thickening or obstruction. Normal appendix. IMPRESSION: 1. Inflammatory change surrounding the mildly distended gallbladder. This is suspicious for acute cholecystitis. Clinical correlation recommended. 2. Small focus of nonocclusive thrombus within the proximal superior mesenteric vein. 3. Bilateral nephrolithiasis. No hydronephrosis. 4. No bowel wall thickening or obstruction. 5. Colonic diverticulosis. 6. These findings were called/faxed to the emergency Department following dictation. ACT 112: Negative or not required by law. Electronically signed by: Kirk Carias M.D. 11/28/2019 7:06 AM Dictated: 11/28/19700 Transcribed: 11/28/19 07 Code Status & VTE Plan Code Status FULL VTE Prophylaxis Plan VTE Prophylaxis will be ordered: Yes PG Care Time/CCT Total # of Minutes Spent Total Time Spent with Patient: Total time spent is greater than 50% in coordination of care (as documented) at patient's floor/unit and/or counseling patient: Coding Level of Care Code 55050 Initial Inpt Care Lvl 2 Diagnoses Abdominal pain R10.12 Abdominal location: left upper quadrant Hypertension I10 Hypertension type: essential hypertension (1) Hypertension Hypertension type: essential hypertension Qualified Code(s): I10 - Essential (primary) hypertension (2) Abdominal pain Abdominal location: left upper quadrant Qualified Code(s): R10.12 - Left upper quadrant pain
[2019-11-28] MEDS ORDERED: MoRPHine SULFATE 2 MG/ML CARP IV STA (13:34)
--- NOTE | 2019-11-28 15:07 | Nuclear Medicine Report ---
NUCLEAR HEPATOBILIARY SCAN CLINICAL HISTORY: Abnormal gallbladder seen on CT. COMPARISON STUDY: Abdominal CT dated 11/28/2019. TECHNIQUE: Dynamic images of the liver and anterior abdomen were obtained every 5 minutes for a total of 60 minutes following the IV administration of 5.5mCi of technetium 99m Choletec. The gallbladder isn't visualized at 60 minutes. 2 mg of IV morphine was administered and additional imaging was perfo rmed at 5 minute intervals from 95 minutes to 120 minutes. FINDINGS: The hepatobiliary scan shows prompt and homogeneous hepatic uptake. There is visualized act ivity within the intra and extrahepatic biliary tree at 10 minutes, and there is normal biliary to b owel transit with small bowel visualized by 15 minutes. The gallbladder was also not visualized after an additional 60 minutes of imaging following morphine administration. IMPRESSION: Scintigraphic findings are consistent with acute cholecystitis. ACT 112: Negative or not required by law. Electronically signed by: Gage Barnett M.D. 11/28/2019 3:06 PM
[2019-11-28] MEDS ORDERED: DOCUSATE SODIUM 100 MG CAP PO PRN (15:14)
[2019-11-28] MEDS ORDERED: ONDANSETRON INJ 2 MG/ML 2 ML VIAL IV PRN ×2 (15:14→19:30)
[2019-11-28] MEDS ORDERED: PIPERACILL/TAZOBAC CONSULT ACTIVE PRN (15:14)
[2019-11-28] MEDS ORDERED: LACTATED RINGER'S 1,000 ML IV SCH (15:14)
[2019-11-28] MEDS ORDERED: MoRPHine SULFATE 2 MG/ML CARP IV PRN (15:14)
[2019-11-28] MEDS ORDERED: PIPERACILLIN/TAZOBACTAM 4.5 GM in DEXTROSE 5% 100 ML IV ONE (15:30)
[2019-11-28 16:00] LABS: Magnesium 1.9 mg/dl (1.8-2.4); Phosphorus 3.5 mg/dl (2.5-4.9); Troponin I < 0.015 ng/ml (0-0.045)
--- NOTE | 2019-11-28 16:41 | Gastrointestinal Consultation ---
Date of Consultation November 28, 2019 Assessment & Plan (1) Abdominal pain: While the symptomatology is not convincing of cholecystitis, the CT and a positive HIDA scan suggest cholecystitis. Without localized pain nor tenderness at the location of polypectomy and CT not showing any edema at the site of the polypectomy, a postpolypectomy syndrome is less likely. The prior episodes of pain may also point to a gall bladder problem and we might be just catching a very early phase of cholecystitis. Favor cholecystectomy. Discussed with surgeon and primary. Present on Admission?: Yes History of Present Illness Attending Physician: Gretchen Gross, DO History of Present Illness Patient developed abdominal pain on the same day after colonoscopy and polypectomy. Polyps were removed from the IC valve and the appendiceal area. He went home fine and had food. After dinner, several hours after the colonoscopy he developed crampy pain. Was not relieved by antacids and warm applications. The pain was in the upper part of the abdomen mostly to the left. I spoke to him late night and suggest ER eval if not better. He had lower left abdominal pain while in [facility] and was thought to be a kidney stone. There are two occasions in the past where he had epigastric pain that spontaneously relieved. On one occasion he almost came to the ER. A CT and HIDA is suggestive of cholecystitis. Allergies Allergy/AdvReac Type Severity Reaction Status Date / Time No Known Allergies Allergy Unverified 11/28/19 01:37 Home Medications Home Medications Medication Instructions Recorded Confirmed Type carvedilol 3.125 mg PO BID 11/28/19 11/28/19 History losartan 50 mg PO BID 11/28/19 11/28/19 History triamcinolone acetonide TOPICAL PRN 11/28/19 History Patient History Medical History Abdominal pain (Acute) Hypertension Obesity Surgical History History of Achilles tendon repair S/P colonoscopy (Inactive) Family History Father Cancer Colon cancer Social History Preferred Language: Ukrainian Communication Ability: Effective Technician Required: No Beliefs That Will Affect Care: None Current Living Situation: Spouse Feels Safe at Home: Yes Smoking Status: Former smoker Hx Alcohol Use: No Hx Substance Use: No Review of Systems 2 Constitutional: no fever, no chills and no sweats Gastrointestinal: + abdominal pain; no vomiting, no change in bowel habits, no diarrhea/loose stools and no blood in stools Physical Exam Constitutional: + obese; no acute distress and not ill appearing Neck: normal visual inspection Respiratory: normal respiratory effort; no respiratory distress Gastrointestinal (Abdomen): Inspection/Auscultation: abdomen normal to inspection Percussion/Palpation: + abdomen tender (RUQ on deep palpation, pain felt on left side.) and abdomen soft; no hepatomegaly, no hernia, no abdominal mass and no ascites Skin: no rashes, warm and dry Psychiatric: Orientation: alert Affect: euthymic affect Results & Data Vital Signs (Past 12 Hours) Vital Signs Temp Pulse Resp BP Pulse Ox 11/28/19 15:16 36.7 C 60 18 197/82 H 97 11/28/19 12:21 46 L 20 159/78 H 96 11/28/19 12:08 52 L 20 185/91 H 95 11/28/19 11:19 51 L 20 173/88 H 93 11/28/19 09:34 47 L 16 189/99 H 96 11/28/19 08:35 48 L 16 189/88 H 98 11/28/19 07:08 48 L 16 169/91 H 97 11/28/19 05:17 49 L 16 156/70 H 96 (1) Abdominal pain Abdominal location: left upper quadrant Qualified Code(s): R10.12 - Left upper quadrant pain
[2019-11-28] MEDS: LOSARTAN POTASSIUM 50 MG TAB PO SCH ×2 (17:05→22:59)
[2019-11-28] MEDS: carvediloL 3.125 MG TAB PO SCH ×2 (17:05→22:59)
--- NOTE | 2019-11-28 17:06 | History & Physical Bridge Note ---
Date of Service November 28, 2019 History & Physical Bridge Note I have examined the patient, reviewed the History & Physical and in the interval since the performance of the History & Physical I have noted the following changes of clinical significance: HIDA scan showed acute cholecystitis. Discussed with pt and lap cholecystectomy recommended. He is in agreement and consent was signed.
[2019-11-28] MEDS ORDERED: GLYCOPYRROLATE 0.2 MG/ML VIAL ONE (19:08)
[2019-11-28] MEDS ORDERED: MIDAZOLAM HCL 1 MG/ML 2ML VIAL ONE (19:08)
[2019-11-28] MEDS ORDERED: fentaNYL citrate 100 MCG/2 ML VIAL ONE ×2 (19:08→20:17)
[2019-11-28] MEDS ORDERED: NEOSTIGMINE METHYLSULFATE 5 MG/5 ML SYR ONE (19:08)
[2019-11-28] MEDS ORDERED: PROPOFOL IV EMULSION 10 MG/ML 20 ML VIAL IV ONE (19:08)
[2019-11-28] MEDS ORDERED: ROCURONIUM BROMIDE 10 MG/ML 5 ML VIAL ONE (19:08)
[2019-11-28] MEDS ORDERED: BUPIVACAINE 0.5 % 5 MG/1 ML MPF 30ML VIAL ONE ×2 (19:16→21:30)
--- NOTE | 2019-11-28 19:29 | Anesthesiology Consultation ---
Date of Service November 28, 2019 Assessment & Plan Consults Requested none ASA ASA2 Proposed Anesthesia Anesthesia Type: General Risk / Benefits Reviewed With: PT / POA / Parent / Guardian, Accepts Plan and Informed Consent Obtained History Surgery Operation Date: 11/28/19 20:00 Proposed Procedures p Laparoscopic Cholecystectomy - Summer Beyer MD Height/Weight Height: 6 ft 1 in Weight: 126.4 kg Allergies Allergy/AdvReac Type Severity Reaction Status Date / Time No Known Allergies Allergy Unverified 11/28/19 01:37 Medications Home Medications Medication Instructions Recorded Confirmed Last Taken carvedilol 3.125 mg PO BID 11/28/19 11/28/19 11/27/19 losartan 50 mg PO BID 11/28/19 11/28/19 11/27/19 triamcinolone acetonide TOPICAL PRN 11/28/19 Unknown Active Medications Generic Name Dose Route Start Last Admin Trade Name Freq PRN Reason Stop Dose Admin Carvedilol 3.125 mg 11/28/19 15:30 11/28/19 17:05 Coreg PO 12/28/19 15:29 3.125 mg BID CAPRI Administration Lactated Ringer's 1,000 mls @ 80 mls/hr 11/28/19 15:14 11/28/19 19:25 Lr IV 11/29/19 03:43 0 mls/hr .[id number] CAPRI Infusion Ketorolac Tromethamine 15 mg 11/28/19 15:14 11/28/19 16:30 Toradol IV 12/03/19 15:13 15 mg Q6H PRN Administration Pain Losartan Potassium 50 mg 11/28/19 15:30 11/28/19 17:05 Cozaar PO 12/28/19 15:29 50 mg BID CAPRI Administration NPO Date Last Intake of Fluids: 11/27/19 Time Last Intake of Fluids: 18:00 Last Intake of Fluids Comment: sip for medications Date Last Intake of Solids: 11/27/19 Time Last Intake of Solids: 18:00 Past Medical History Medical History Abdominal pain (Acute) Hypertension Obesity Exercise / Class Metabolic Activity II 4-5 Yardwork/Stairs/Walk up hill Past Family History Family History Father Cancer Colon cancer Past Surgical History Surgical History History of Achilles tendon repair S/P colonoscopy (Inactive) Past Anesthesia History No Hx of Anesthesia Complications and No Family Hx of Anesthesia Complications History of PONV No Hx of PONV and No Hx of Motion Sickness Social History Smoking Status: Former smoker Hx Alcohol Use: No Hx Substance Use: No substance use type: does not use Review of Systems denies fever/cough/ colds/ chest pain/ SOB/ HANNAH Constitutional: no fever and no chills Respiratory: no cough and no dyspnea denies HANNAH Cardiovascular: no chest pain and no dyspnea on exertion Physical Exam Vital Signs Last Vital Signs Temp 36.7 C 11/28/19 15:16 Pulse 72 11/28/19 18:02 Resp 18 11/28/19 18:02 BP 151/68 H 11/28/19 18:02 Pulse Ox 92 11/28/19 18:02 ENMT Mouth: no TMJ abnormality and no dentition abnormality Thyromental Distance: > or= 3.5 Finger Breadths Mallampati Class: I Mouth / Teeth: 1. Chipped Neck neck extension not limited Respiratory normal respiratory effort; no respiratory distress Auscultation: lungs clear to auscultation bilaterally Cardiovascular Rate/Rhythm: regular rate and regular rhythm Neurologic moves all extremities Psychiatric Orientation: alert and oriented x 3 Testing Laboratory Results 11/28/19 01:55 11/28/19 01:55 Urine Color Yellow 11/28/19 02:45 Urine Appearance Clear (Clear) 11/28/19 02:45 Urine pH 6.5 (4.5-7.5) 11/28/19 02:45 Ur Specific [place] 1.018 (1.000-1.030) 11/28/19 02:45 Urine Protein Negative (Negative) 11/28/19 02:45 Urine Glucose (UA) Negative (Negative) 11/28/19 02:45 Urine Ketones Negative (Negative) 11/28/19 02:45 Urine Nitrite Negative (Negative) 11/28/19 02:45 Ur Leukocyte Esterase Negative (Negative) 11/28/19 02:45
[2019-11-28] MEDS ORDERED: HYDROmorphone INJ 2 MG/ML SYR/VIAL IV PRN (19:30)
[2019-11-28] MEDS ORDERED: ATROPINE SULFATE 0.1 MG/ML 10ML SYR IV PRN (19:30)
[2019-11-28] MEDS ORDERED: ePHEDrine sulfate 50 MG/ML AMP IV PRN (19:30)
[2019-11-28] MEDS: PIPERACILLIN/TAZOBACTAM 4.5 GM in DEXTROSE 5% 100 ML IV SCH (19:32)
[2019-11-28] MEDS ORDERED: ePHEDrine sulfate 50 MG/ML AMP ONE (19:55)
[2019-11-28] MEDS ORDERED: ePHEDrine sulfate 50 MG/ML SYR ONE (19:55)
[2019-11-28] MEDS ORDERED: ONDANSETRON INJ 2 MG/ML 2 ML VIAL ONE (20:05)
[2019-11-28] MEDS ORDERED: DEXAMETHASONE SOD INJ 4 MG/ML VIAL ONE (20:05)
[2019-11-28] MEDS ORDERED: KETOROLAC 30 MG/ML VIAL ONE (20:05)
--- NOTE | 2019-11-28 22:02 | Operative Report ---
Post Operative Report Pre & Post Diagnosis Operation Date: 11/28/19 20:00 Pre-Op Diagnosis: Acute Cholecystits Post-Op Diagnosis: Acute Cholecystits I identified the patient and participated in the time-out.: Yes Procedure Operation Date: 11/28/19 20:00 Actual Procedures p Laparoscopic Cholecystectomy(Not Applicable) - Summer Beyer MD Surgeon Summer Beyer MD Dining Service Inspector none Estimated Blood Loss 20 Findings See Below (gangrenous gallbladder packed with gallstones) Specimens gallbladder and contents Description of Procedure see dictated operative report I attest to the content of the Intraoperative Record and any orders documented therein. Any exceptions are noted below.
--- NOTE | 2019-11-28 22:46 | Anesthesiology Progress Note ---
Date of Service November 28, 2019 Anesthesia Post Procedure Vital Signs Vital Signs: Temp Pulse Pulse Pulse Resp BP BP 11/28/19 22:40 56 L 18 11/28/19 22:30 36.5 C 69 15 11/28/19 22:20 70 15 11/28/19 22:10 75 17 11/28/19 22:01 36.3 C L 81 14 11/28/19 18:02 72 18 11/28/19 16:37 59 L 173/69 H 11/28/19 15:16 36.7 C 60 18 197/82 H 11/28/19 12:21 46 L 20 159/78 H 11/28/19 12:08 52 L 20 185/91 H 11/28/19 11:19 51 L 20 173/88 H 11/28/19 09:34 47 L 16 189/99 H 11/28/19 08:35 48 L 16 189/88 H 11/28/19 07:08 48 L 16 169/91 H 11/28/19 05:17 49 L 16 156/70 H 11/28/19 04:30 56 L 13 11/28/19 04:08 57 L 15 206/98 H 11/28/19 04:07 54 L 21 11/28/19 03:46 52 L 22 190/88 H 11/28/19 03:30 52 L 16 11/28/19 03:29 49 L 20 190/88 H 11/28/19 03:00 53 L 19 11/28/19 02:43 48 L 14 178/88 H 11/28/19 01:57 53 L 20 11/28/19 01:34 36.8 C 53 L 20 202/94 H BP Pulse Ox 11/28/19 22:40 136/66 93 11/28/19 22:30 137/65 95 11/28/19 22:20 138/66 93 11/28/19 22:10 142/71 H 94 11/28/19 22:01 128/71 93 11/28/19 18:02 151/68 H 92 11/28/19 16:37 180/88 H 11/28/19 15:16 97 11/28/19 12:21 96 11/28/19 12:08 95 11/28/19 11:19 93 11/28/19 09:34 96 11/28/19 08:35 98 11/28/19 07:08 97 11/28/19 05:17 96 11/28/19 04:30 11/28/19 04:08 11/28/19 04:07 11/28/19 03:46 11/28/19 03:30 11/28/19 03:29 96 11/28/19 03:00 11/28/19 02:43 11/28/19 01:57 97 11/28/19 01:34 97 Pain Intensity Left Upper Abdomen: Pain Intensity: 4 Transfer of Care Handoff Completed per policy Notes Mental Status: alert / awake / arousable and participated in evaluation Patient Amnestic to Procedure: Yes Nausea / Vomiting: adequately controlled Pain: adequately controlled Airway Patency, RR, SpO2: stable & adequate BP & HR: stable & adequate Hydration State: stable & adequate Anesthetic Complications: no major complications apparent and Pt Satisfied with anesthetic care
[2019-11-28] MEDS ORDERED: MoRPHine SULFATE 4 MG/ML 1 ML CARP\\VIAL IV PRN (22:48)
[2019-11-28] MEDS ORDERED: OXYCODONE/ACETAMINOPHEN 5mg/325mg TAB PO PRN (22:48)
--- NOTE | 2019-11-28 23:57 | Operative Report ---
DATE OF OPERATION: 11/28/2019 PREOPERATIVE DIAGNOSIS: Acute cholecystitis. POSTOPERATIVE DIAGNOSES: Acute calculus cholecystitis with gangrenous changes. OPERATIVE PROCEDURE: Laparoscopic cholecystectomy. SURGEON: Dr. Summer Beyer. ANESTHESIA: General endotracheal anesthesia. ESTIMATED BLOOD LOSS: 20 mL. IV FLUIDS: 1400 mL. ASA: 3. SPECIMENS: Gallbladder. DRAINS: 7 flat HEIDI in right upper quadrant. INDICATIONS: The patient is a 64-year-old gentleman who underwent a colonoscopy yesterday. He subsequently developed abdominal pain. He was seen in the Emergency Room with CT scan and HIDA scan consistent with acute cholecystitis. He was counseled regarding the need for laparoscopic cholecystectomy and consented to proceed. DESCRIPTION OF PROCEDURE: The patient received Zosyn preoperatively. After the induction of general endotracheal anesthesia, he was placed in sequential compression devices. His abdomen was sterilely prepped and draped. Given his BMI of 37, a footboard was placed as most of his weight was carried centrally and he was initially positioned in Trendelenburg and supraumbilical incision made. A Veress needle was placed into the peritoneal cavity and tested with the saline drop test. Initial pressure was 5 mmHg and this has taken up to 15 mmHg. A 5 mm trocar was placed. Three additional trocars were placed under direct vision, an 11 in the epigastrium and two 5s on the right side of the abdomen. The patient was positioned in severe reverse Trendelenburg to try to get his abdominal contents out of the way. Despite this, the gallbladder was noted to still be very difficult to retract over the edge of a fatty liver. The gallbladder was initially decompressed. It was noted to be purple and had gangrenous changes. It did decompress some bile, but did not decompress fully and did appeared to be packed with gallstones. A fifth trocar was then placed with the 11 mm allowing for fan retractor to be put in to retract the omentum and bowel inferiorly. This allowed the infundibulum of the gallbladder to be visualized. Dense inflammatory adhesions here were carefully and tediously taken down. Small branches of the cystic artery were clipped and divided. The cystic duct was ultimately identified and the gallbladder triangulated on it. Critical views were seen anteriorly and posteriorly. This was doubly clipped on the remaining side, doubly clipped on the gallbladder side and divided. The gallbladder was then dissected off the liver bed tediously, it was noted to have gangrenous and bilious changes to the wall. It was a very long gallbladder and this dissection did take quite a long time. Ultimately, the gallbladder was able to be removed. There was no spillage of stones. It was placed in an Endobag and tried to be removed through the epigastric incision. However, due to the size of the gallbladder, this incision needed to be extended and the gallbladder opened and the stones removed separately. This then allowed the gallbladder to be removed. The abdomen was irrigated. There was some minor oozing noted from the liver. This was cauterized. There was no overt bleeding noted. Due to the high risk for bile leak, a 7 flat HEIDI was placed out through the right lateral port site. This was secured to the skin with a nylon stitch. The abdomen was again irrigated. The trocars were removed. Pneumoperitoneum released. The fascia of the 2 larger port sites was closed with 0 Vicryl stitches placed anteriorly. The skin of all 4 incisions closed with running subcuticular 4-0 Vicryl sutures. Steri-Strips and sterile dressings were applied and he was awakened and taken to recovery in stable condition. I attest to the content of the Intraoperative Record and any orders documented therein. Any exception s are noted below.
[2019-11-29] MEDS: PIPERACILLIN/TAZOBACTAM 4.5 GM in DEXTROSE 5% 100 ML IV SCH ×3 (03:50→20:35)
[2019-11-29 06:51] LABS: Basophils # (auto) 0.01 K/uL (0-0.2); Basophils % (auto) 0.1 %; Hematocrit (blood only) 40.1 % (42-52); Hemoglobin 13.6 g/dL (14.0-18.0); Immature Granulocytes # (auto) 0.02 K/uL (0.00-0.02); Immature Granulocytes % (auto) 0.2 %; Lymphocytes # (auto) 0.57 K/uL (1.2-3.4); Lymphocytes % (auto) 5.2 %; Mean Corpuscular Hemoglobin 28.2 pg (25-34); Mean Corpuscular Hgb Conc 33.9 g/dL (32-36); Mean Corpuscular Volume 83.2 fL (80-100); Mean Platelet Volume 9.6 fL (7.4-10.4); Monocytes # (auto) 0.88 K/uL (0.11-0.59); Neutrophils # (auto) 9.52 K/uL (1.4-6.5); Neutrophils % (auto) 86.5 %; Platelet Count 183 K/uL (130-400); RDW Coefficient of Variation 14.7 % (11.5-14.5); Red Blood Count 4.82 M/uL (4.7-6.1)
[2019-11-29 07:23] LABS: Albumin Level 2.8 gm/dl (3.4-5.0); BUN Creatinine Ratio 9.6 (10-20); Bilirubin Direct 0.3 mg/dl (0-0.2); Calcium 8.3 mg/dl (8.5-10.1); Creatinine Clr Calc Pharmacy 68.9 ml/min; Est GFR (African American) 56.8
[2019-11-29 07:30] LABS: Bilirubin,Total 1.2 mg/dl (0.2-1); Total Protein 6.3 gm/dl (6.4-8.2)
[2019-11-29] MEDS: carvediloL 3.125 MG TAB PO SCH ×2 (08:37→20:32)
[2019-11-29] MEDS: LOSARTAN POTASSIUM 50 MG TAB PO SCH (08:38)
--- NOTE | 2019-11-29 10:09 | Surgery Progress Note ---
Date of Service November 29, 2019 Assessment & Plan (1) Acute cholecystitis due to biliary calculus: s/p lap cholecystectomy with findings of near gangrenous gallbladder. OK to advance diet as tolerated. Would keep HEIDI in (and will be discharged with HEIDI drain). Would like to keep in hospital for 1 more day of IV antibiotics. If looks well tomorrow, OK to discharge. Present on Admission?: Yes Subjective Feels much better than yesterday. Does have surgical discomfort at sites but well controlled with meds. Feels ready to eat but has only sipped water so far. Review of Systems Review of Systems: All systems reviewed & are unremarkable except as noted in HPI & below Physical Exam Constitutional: WD/WN, vitals as above Respiratory: normal respiratory effort, lungs clear to auscultation Cardiovascular: RRR, no murmur, no edema Gastrointestinal (Abdomen): Inspection/Auscultation: abdomen normal to inspection and normal bowel sounds; abdomen not distended Percussion/Palpation: abdomen soft dressings with dried blood, HEIDI serosanguinous Results & Data Vital Signs (Past 12 Hours) Vital Signs Temp Pulse Pulse Resp BP BP Pulse Ox 11/29/19 07:36 36.5 C 53 L 16 131/75 92 11/29/19 01:46 36.4 C L 76 18 129/72 92 11/29/19 00:42 36.5 C 70 16 128/67 93 11/28/19 23:45 36.4 C L 66 16 135/73 94 11/28/19 23:15 36.6 C 65 16 142/76 H 95 11/28/19 22:40 56 L 18 136/66 93 11/28/19 22:30 36.5 C 69 15 137/65 95 11/28/19 22:20 70 15 138/66 93 11/28/19 22:10 75 17 142/71 H 94 Laboratory Results 11/29/19 11/29/19 11/28/19 Range/Units 06:33 06:33 22:53 WBC 11.00 H (4.8-10.8) K/uL RBC 4.82 (4.7-6.1) M/uL Hgb 13.6 L (14.0-18.0) g/dL Hct 40.1 L (42-52) % MCV 83.2 (80-100) fL MCH 28.2 (25-34) pg MCHC 33.9 (32-36) g/dL RDW Std Deviation 45.0 (36.4-46.3) fL RDW Coeff of Nydia 14.7 H (11.5-14.5) % Plt Count 183 (130-400) K/uL MPV 9.6 (7.4-10.4) fL Immature Gran % (Auto) 0.2 % Neut % (Auto) 86.5 % Lymph % (Auto) 5.2 % Frio % (Auto) 8.0 % Eos % (Auto) 0.0 % Baso % (Auto) 0.1 % Immature Gran # (Auto) 0.02 (0.00-0.02) K/uL Neut # (Auto) 9.52 H (1.4-6.5) K/uL Lymph # (Auto) 0.57 L (1.2-3.4) K/uL Frio # (Auto) 0.88 H (0.11-0.59) K/uL Eos # (Auto) 0.00 (0-0.5) K/uL Baso # (Auto) 0.01 (0-0.2) K/uL Sodium 139 (136-145) mmol/L Potassium 4.0 (3.5-5.1) mmol/L Chloride 109 H (98-107) mmol/L Carbon Dioxide 26 (21-32) mmol/L Anion Gap 4.0 (3-11) BUN 14 (7-18) mg/dl Creatinine 1.47 H D (0.6-1.4) mg/dl Est Cr Clr Drug Dosing 68.9 ml/min Est GFR ( Amer) 56.8 Est GFR (Non-Af Amer) 49.0 BUN/Creatinine Ratio 9.6 L (10-20) Glucose 134 H (70-99) mg/dl Calcium 8.3 L (8.5-10.1) mg/dl Phosphorus (2.5-4.9) mg/dl Magnesium (1.8-2.4) mg/dl Total Bilirubin 1.2 H D (0.2-1) mg/dl Direct Bilirubin 0.3 H (0-0.2) mg/dl AST 37 (15-37) U/L ALT 46 (12-78) U/L Alkaline Phosphatase 39 L (45-117) U/L Troponin I < 0.015 (0-0.045) ng/ml Total Protein 6.3 L (6.4-8.2) gm/dl Albumin 2.8 L (3.4-5.0) gm/dl 11/28/19 Range/Units 15:23 WBC (4.8-10.8) K/uL RBC (4.7-6.1) M/uL Hgb (14.0-18.0) g/dL Hct (42-52) % MCV (80-100) fL MCH (25-34) pg MCHC (32-36) g/dL RDW Std Deviation (36.4-46.3) fL RDW Coeff of Nydia (11.5-14.5) % Plt Count (130-400) K/uL MPV (7.4-10.4) fL Immature Gran % (Auto) % Neut % (Auto) % Lymph % (Auto) % Frio % (Auto) % Eos % (Auto) % Baso % (Auto) % Immature Gran # (Auto) (0.00-0.02) K/uL Neut # (Auto) (1.4-6.5) K/uL Lymph # (Auto) (1.2-3.4) K/uL Frio # (Auto) (0.11-0.59) K/uL Eos # (Auto) (0-0.5) K/uL Baso # (Auto) (0-0.2) K/uL Sodium (136-145) mmol/L Potassium (3.5-5.1) mmol/L Chloride (98-107) mmol/L Carbon Dioxide (21-32) mmol/L Anion Gap (3-11) BUN (7-18) mg/dl Creatinine (0.6-1.4) mg/dl Est Cr Clr Drug Dosing ml/min Est GFR ( Amer) Est GFR (Non-Af Amer) BUN/Creatinine Ratio (10-20) Glucose (70-99) mg/dl Calcium (8.5-10.1) mg/dl Phosphorus 3.5 (2.5-4.9) mg/dl Magnesium 1.9 (1.8-2.4) mg/dl Total Bilirubin (0.2-1) mg/dl Direct Bilirubin (0-0.2) mg/dl AST (15-37) U/L ALT (12-78) U/L Alkaline Phosphatase (45-117) U/L Troponin I < 0.015 (0-0.045) ng/ml Total Protein (6.4-8.2) gm/dl Albumin (3.4-5.0) gm/dl
[2019-11-29] MEDS: OXYCODONE/ACETAMINOPHEN 5mg/325mg TAB PO PRN ×2 (12:36→18:12)
--- NOTE | 2019-11-29 14:42 | Gastroenterology Progress Note ---
Date of Service November 29, 2019 Assessment & Plan (1) Abdominal pain: Note surgery findings, acute gangrenous cholecystitis. Suspect just coincidental with timing of colonoscopy. No additional recommendations at present. Plans per surgical team. Present on Admission?: Yes Subjective Doing well, much better in terms of pain. Results & Data Vital Signs (Past 12 Hours) Vital Signs Temp Pulse Resp BP Pulse Ox 11/29/19 07:36 36.5 C 53 L 16 131/75 92 (1) Abdominal pain Abdominal location: left upper quadrant Qualified Code(s): R10.12 - Left upper quadrant pain
[2019-11-29] MEDS: LACTATED RINGER'S 1,000 ML IV SCH (14:43)
--- NOTE | 2019-11-29 16:12 | Hospitalist Progress Note ---
Date of Service November 29, 2019 Assessment & Plan (1) Acute cholecystitis due to biliary calculus: * CT and HIDA with evidence of acute cholecystitis, no CBD obstruction, LFTs normal on admission, now slightly elevated post-op * General surgery on consult -- appreciate recs * POD #1 s/p cholecystectomy by Dr. Beyer with evidence of gangrenous gallbladder -- see op report-- oozing GB. EBL 20mL * Continue IV Zosyn for one more night per surgery, then can transition to PO prior to discharge * Pain control with morphine, percocet. Toradol discontinued in setting of MORRO/bleeding * IVF @ 80ml/hr * Tbili 1.2, Direct bili 0.3 -- secondary to gangrenous GB. AST 37, ALT 46, Alk phos 39 * Pre-op h/h 14.7/43.0 -- currently 13.3/40.1, likely secondary to acute blood loss following surgery and dilutional from IVF * Monitor CBC, CMP in AM (2) Abdominal pain: * Improving * Secondary to #1, although possible contribution from findings on CT * See above * s/p colonoscopy performed 11/[address] Gresham with polyp removal x 2 - one 15mm polyp at the ileocecal valve with difficult and incomplete removal, one 5mm removal. CT suggestive of acute cholecystitis. Patient does not clinically appear as such. 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 No perforation. Nonocclusive proximal mesenteric vein thrombus. -- discussed findings on CT with GI, Dr. Gresham, with recommendation by GI to initiate anticoagulation x 3 months. Discussed findings with radiologist public relations account executive whom states it is not clear whether this SMV thrombus is acute vs chronic, but does not recommend any further imaging for evaluation to determine chronicity. Agrees with anticoagulation if deemed necessary. Per conversation with General Surgery, patient with continued blood output from HEIDI -- will hold off on anticoagulation for now until cleared by surgical team-- re-evaluate in AM * HIDA with evidence of acute cholecystitis * GI consulted -- appreciate recs * General Surgery consulted -- appreciate recs (3) Hypertension: * Chronic. Stable at 117/65 * Holding losartan in the setting of MORRO (patient already received AM dose prior to being held) * Continue home carvedilol 3.125mg BID (4) Thrombus: * As above * Nonocclusive proximal mesenteric vein thrombus. -- discussed findings on CT with GI, Dr. Gresham, with recommendation by GI to initiate anticoagulation x 3 months. Discussed findings with radiologist public relations account executive whom states it is not clear acute vs chronic, but does not recommend any further imaging for evaluation to determine chronicity. Agrees with anticoagulation if deemed necessary * Check Hypercoagulable labs * Also need to assess for underlying malignancy as cause of this. Unclear if acute cholecystitis could cause mesenteric vein thrombus? * follow up on path from colon polypectomy to ensure no cancer * Would initiate NOAC (discussed eliquis with patient) once cleared by surgery (5) Acute kidney injury: * Cr rise from 1.13 to 1.47 -- likely secondary to contrast dye/LAKEISHA following surgery * Hold losartan as above * Monitor in AM (6) DVT prophylaxis: * SCDs, caitlyn herrera * Chemical prophylaxis held in setting of oozing GB and sanginous HEIDI output * See above -- patient to be on anticoagulation x 3 months once cleared by gen surg Dispo: IV antibiotics overnight, possible discharge tomorrow or saturday Supervising Physician Co-Signing Physician Notes PA Supervision Note: I did not personally see or examine the patient today, but I verified all mckay points of PABLO Hunter's assessment and plan with the following exceptions/additions: None Subjective Patient evaluated this morning at bedside. Tolerating diet without difficulty. Pain tolerable with medications. States he is only having some incisional pain, but feels much improved from yesterday. HEIDI drain to remain in place at discharge. Will continue IV abx for another day prior to possible discharge tomorrow. Discussed findings on CT with patient and possibility of starting Eliquis for nonocclusive proximal mesenteric vein thrombus after discussing with Dr. Gresham. Will need to be done after bleeding stops and cleared by surgery. Denies any left sided pain today, although patient states he did have upper left sided pain, but describes the general pain on admission as bandlike. He did have some right shoulder discomfort this morning but that has resolved. No bowel movement yet. Passing flatus. No history of DVT/PE. Denies any fever, chills, shortness of breath, chest pain, dysuria or hematuria. Review of Systems Review of Systems: All systems reviewed & are unremarkable except as noted in HPI & below Physical Exam Constitutional: WD/WN, vitals as above no acute distress Eyes: + anicteric sclerae and PERRL ENMT: external ear and nose normal, oropharynx normal Neck: trachea midline, no thyromegaly Respiratory: normal respiratory effort, lungs clear to auscultation Cardiovascular: RRR, no murmur, no edema Gastrointestinal (Abdomen): Inspection/Auscultation: normal bowel sounds; abdomen not distended Percussion/Palpation: + abdomen tender (minimally ten iman at surgical incision sites ) and abdomen soft; no guarding HEIDI drain with sanguinous drainage. Dressing with minimal dried blood. Musculoskeletal: no cyanosis or clubbing, extremities motor strength 5/5 Skin: lap shashank incisions dressings c/d/i Right surgical site with HEIDI drain-- dressing with minimal dried blood Neurologic: PERRL, EOMI, accommodation nl, no face palsy, no dysarthria Psychiatric: A+Ox3, euthymic affect Lymphatic: no cervical or axillary lymphadenopathy Results & Data ([facility]) Vital Signs (Past 12 Hours) Vital Signs Temp Pulse Resp BP Pulse Ox 11/29/19 16:02 36.3 C L 54 L 16 117/65 92 11/29/19 07:36 36.5 C 53 L 16 131/75 92 Laboratory Results 11/29/19 11/29/19 11/28/19 Range/Units 06:33 06:33 22:53 WBC 11.00 H (4.8-10.8) K/uL RBC 4.82 (4.7-6.1) M/uL Hgb 13.6 L (14.0-18.0) g/dL Hct 40.1 L (42-52) % MCV 83.2 (80-100) fL MCH 28.2 (25-34) pg MCHC 33.9 (32-36) g/dL RDW Std Deviation 45.0 (36.4-46.3) fL RDW Coeff of Nydia 14.7 H (11.5-14.5) % Plt Count 183 (130-400) K/uL MPV 9.6 (7.4-10.4) fL Immature Gran % (Auto) 0.2 % Neut % (Auto) 86.5 % Lymph % (Auto) 5.2 % [place] % (Auto) 8.0 % Eos % (Auto) 0.0 % Baso % (Auto) 0.1 % Immature Gran # (Auto) 0.02 (0.00-0.02) K/uL Neut # (Auto) 9.52 H (1.4-6.5) K/uL Lymph # (Auto) 0.57 L (1.2-3.4) K/uL [place] # (Auto) 0.88 H (0.11-0.59) K/uL Eos # (Auto) 0.00 (0-0.5) K/uL Baso # (Auto) 0.01 (0-0.2) K/uL Sodium 139 (136-145) mmol/L Potassium 4.0 (3.5-5.1) mmol/L Chloride 109 H (98-107) mmol/L Carbon Dioxide 26 (21-32) mmol/L Anion Gap 4.0 (3-11) BUN 14 (7-18) mg/dl Creatinine 1.47 H D (0.6-1.4) mg/dl Est Cr Clr Drug Dosing 68.9 ml/min Est GFR ( Amer) 56.8 Est GFR (Non-Af Amer) 49.0 BUN/Creatinine Ratio 9.6 L (10-20) Glucose 134 H (70-99) mg/dl Calcium 8.3 L (8.5-10.1) mg/dl Total Bilirubin 1.2 H D (0.2-1) mg/dl Direct Bilirubin 0.3 H (0-0.2) mg/dl AST 37 (15-37) U/L ALT 46 (12-78) U/L Alkaline Phosphatase 39 L (45-117) U/L Troponin I < 0.015 (0-0.045) ng/ml Total Protein 6.3 L (6.4-8.2) gm/dl Albumin 2.8 L (3.4-5.0) gm/dl PG Care Time/CCT Total # of Minutes Spent Total Time Spent with Patient: Total time spent is greater than 50% in coordination of care (as documented) at patient's floor/unit and/or counseling patient: Coding Level of Care Code 00145 Subseq Hosp Care Lvl 3 Diagnoses Acute cholecystitis due to biliary calculus K80.00 Abdominal pain R10.12 Abdominal location: left upper quadrant Hypertension I10 Hypertension type: essential hypertension Thrombus I82.90 Acute kidney injury N17.9 DVT prophylaxis Z29.9 (1) Abdominal pain Abdominal location: left upper quadrant Qualified Code(s): R10.12 - Left upper quadrant pain (2) Hypertension Hypertension type: essential hypertension Qualified Code(s): I10 - Essential (primary) hypertension
[2019-11-30] MEDS: LACTATED RINGER'S 1,000 ML IV SCH (03:19)
[2019-11-30] MEDS: PIPERACILLIN/TAZOBACTAM 4.5 GM in DEXTROSE 5% 100 ML IV SCH ×2 (03:20→12:38)
[2019-11-30 05:40] LABS: Basophils # (auto) 0.01 K/uL (0-0.2); Basophils % (auto) 0.1 %; Eosinophils # (auto) 0.32 K/uL (0-0.5); Hematocrit (blood only) 39.2 % (42-52); Immature Granulocytes # (auto) 0.03 K/uL (0.00-0.02); Immature Granulocytes % (auto) 0.4 %; Lymphocytes # (auto) 1.22 K/uL (1.2-3.4); Lymphocytes % (auto) 15.2 %; Mean Corpuscular Hemoglobin 28.1 pg (25-34); Mean Corpuscular Hgb Conc 33.2 g/dL (32-36); Mean Corpuscular Volume 84.8 fL (80-100); Mean Platelet Volume 9.9 fL (7.4-10.4); Monocytes # (auto) 0.84 K/uL (0.11-0.59); Monocytes % (auto) 10.4 %; Neutrophils # (auto) 5.63 K/uL (1.4-6.5); Neutrophils % (auto) 69.9 %; Platelet Count 169 K/uL (130-400); RDW Coefficient of Variation 14.8 % (11.5-14.5); RDW Standard Deviation 45.7 fL (36.4-46.3); Red Blood Count 4.62 M/uL (4.7-6.1); White Blood Count 8.05 K/uL (4.8-10.8)
[2019-11-30 06:07] LABS: Albumin Level 2.6 gm/dl (3.4-5.0); BUN Creatinine Ratio 14.3 (10-20); Calcium 8.2 mg/dl (8.5-10.1); Creatinine Clr Calc Pharmacy 66.6 ml/min; Est GFR (African American) 54.6; Est GFR (Non-African American) 47.1
[2019-11-30 06:11] LABS: Albumin Globulin Ratio 0.8 (0.9-2); Bilirubin,Total 0.5 mg/dl (0.2-1); Globulin 3.2 gm/dl (2.5-4.0); Total Protein 5.8 gm/dl (6.4-8.2)
[2019-11-30] MEDS: OXYCODONE/ACETAMINOPHEN 5mg/325mg TAB PO PRN (07:35)
[2019-11-30] MEDS: carvediloL 3.125 MG TAB PO SCH (09:42)
--- NOTE | 2019-11-30 11:27 | Surgery Progress Note ---
Date of Service November 30, 2019 Assessment & Plan (1) Acute cholecystitis due to biliary calculus: POD # 2 s/p lap cholecystectomy with findings of near gangrenous gallbladder. -vitals stable, afebrile - leukocytosis resolved - lawrence drain with serosanguineous output - H&H stable T. bili and LFTS wnl Plan: Doing well from surgical standpoint okay to start Eliquis from surgical standpoint at [facility] drain clear and H&H stable To go home with drain close f/u in surgical office transition to oral antibiotics for 7 days on discharge f/u surgery office in 1 week discharge instructions reviewed Dr. Garces has seen patient and agrees with above Subjective feeling well today some abdominal pain controlled with Percocet no nausea or vomiting tolerated regular breakfast urinating without difficulty Physical Exam Constitutional: WD/WN, vitals as above + morbidly obese; no acute distress Respiratory: normal respiratory effort; no respiratory distress Gastrointestinal (Abdomen): Inspection/Auscultation: abdomen normal to inspection and + abdominal surgical drain present (RUQ lawrence drain, serosanguineous); abdomen not distended and + abnormal bowel sounds Percussion/Palpation: + abdomen tender (mildly at incision sites) and abdomen soft; no guarding and abdomen not rigid Skin: no rashes, warm and dry Psychiatric: A+Ox3, euthymic affect Results & Data Vital Signs (Past 12 Hours) Vital Signs Temp Pulse Resp BP BP Pulse Ox 11/30/19 06:51 36.5 C 49 L 16 136/79 95 11/29/19 23:58 36.6 C 47 L 18 110/62 96 Laboratory Results 11/30/19 11/30/19 11/29/19 Range/Units 05:11 05:11 17:14 WBC 8.05 (4.8-10.8) K/uL RBC 4.62 L (4.7-6.1) M/uL Hgb 13.0 L (14.0-18.0) g/dL Hct 39.2 L (42-52) % MCV 84.8 (80-100) fL MCH 28.1 (25-34) pg MCHC 33.2 (32-36) g/dL RDW Std Deviation 45.7 (36.4-46.3) fL RDW Coeff of Nydia 14.8 H (11.5-14.5) % Plt Count 169 (130-400) K/uL MPV 9.9 (7.4-10.4) fL Immature Gran % (Auto) 0.4 % Neut % (Auto) 69.9 % Lymph % (Auto) 15.2 % [place] % (Auto) 10.4 % Eos % (Auto) 4.0 % Baso % (Auto) 0.1 % Immature Gran # (Auto) 0.03 H (0.00-0.02) K/uL Neut # (Auto) 5.63 (1.4-6.5) K/uL Lymph # (Auto) 1.22 (1.2-3.4) K/uL [place] # (Auto) 0.84 H (0.11-0.59) K/uL Eos # (Auto) 0.32 (0-0.5) K/uL Baso # (Auto) 0.01 (0-0.2) K/uL LA PTT Screen Protein C Activity Protein S Activity Antithrombin III Activ Factor V Leiden Mutat Factor V Leiden Interp Sodium 142 (136-145) mmol/L Potassium 4.0 (3.5-5.1) mmol/L Chloride 110 H (98-107) mmol/L Carbon Dioxide 29 (21-32) mmol/L Anion Gap 4.0 (3-11) BUN 22 H D (7-18) mg/dl Creatinine 1.52 H (0.6-1.4) mg/dl Est Cr Clr Drug Dosing 66.6 ml/min Est GFR ( Amer) 54.6 Est GFR (Non-Af Amer) 47.1 BUN/Creatinine Ratio 14.3 (10-20) Glucose 112 H (70-99) mg/dl Calcium 8.2 L (8.5-10.1) mg/dl Total Bilirubin 0.5 D (0.2-1) mg/dl AST 31 (15-37) U/L ALT 42 (12-78) U/L Alkaline Phosphatase 37 L (45-117) U/L Total Protein 5.8 L (6.4-8.2) gm/dl Albumin 2.6 L (3.4-5.0) gm/dl Globulin 3.2 (2.5-4.0) gm/dl Albumin/Globulin Ratio 0.8 L (0.9-2) Homocysteine Pending Beta-2-GPI IgG Ab Beta-2-GPI IgA Ab Beta-2-GPI IgM Ab Anti-Cardiolipin IgG Ab Anti-Cardiolipin IgA Ab Anti-Cardiolipin IgM Ab Prothrombin Gene Mutate Prothromb Gene Comment 11/29/19 Range/Units 17:13 WBC (4.8-10.8) K/uL RBC (4.7-6.1) M/uL Hgb (14.0-18.0) g/dL Hct (42-52) % MCV (80-100) fL MCH (25-34) pg MCHC (32-36) g/dL RDW Std Deviation (36.4-46.3) fL RDW Coeff of Nydia (11.5-14.5) % Plt Count (130-400) K/uL MPV (7.4-10.4) fL Immature Gran % (Auto) % Neut % (Auto) % Lymph % (Auto) % [place] % (Auto) % Eos % (Auto) % Baso % (Auto) % Immature Gran # (Auto) (0.00-0.02) K/uL Neut # (Auto) (1.4-6.5) K/uL Lymph # (Auto) (1.2-3.4) K/uL [place] # (Auto) (0.11-0.59) K/uL Eos # (Auto) (0-0.5) K/uL Baso # (Auto) (0-0.2) K/uL LA PTT Screen Pending Protein C Activity Pending Protein S Activity Pending Antithrombin III Activ Pending Factor V Leiden Mutat Pending Factor V Leiden Interp Pending Sodium (136-145) mmol/L Potassium (3.5-5.1) mmol/L Chloride (98-107) mmol/L Carbon Dioxide (21-32) mmol/L Anion Gap (3-11) BUN (7-18) mg/dl Creatinine (0.6-1.4) mg/dl Est Cr Clr Drug Dosing ml/min Est GFR ( Amer) Est GFR (Non-Af Amer) BUN/Creatinine Ratio (10-20) Glucose (70-99) mg/dl Calcium (8.5-10.1) mg/dl Total Bilirubin (0.2-1) mg/dl AST (15-37) U/L ALT (12-78) U/L Alkaline Phosphatase (45-117) U/L Total Protein (6.4-8.2) gm/dl Albumin (3.4-5.0) gm/dl Globulin (2.5-4.0) gm/dl Albumin/Globulin Ratio (0.9-2) Homocysteine Beta-2-GPI IgG Ab Pending Beta-2-GPI IgA Ab Pending Beta-2-GPI IgM Ab Pending Anti-Cardiolipin IgG Ab Pending Anti-Cardiolipin IgA Ab Pending Anti-Cardiolipin IgM Ab Pending Prothrombin Gene Mutate Pending Prothromb Gene Comment Pending
[2019-11-30 12:23] LABS: BUN Creatinine Ratio 14.5 (10-20); Calcium 8.4 mg/dl (8.5-10.1); Creatinine Clr Calc Pharmacy 73.9 ml/min; Est GFR (African American) 61.9; Est GFR (Non-African American) 53.4; Potassium 3.5 mmol/L (3.5-5.1)
[2019-11-30] MEDS ORDERED: AMOXICILLIN/CLAVULANATE 875 MG TAB PO SCH (12:30)
[2019-11-30] MEDS ORDERED: APIXABAN 5 MG TABLET PO ONE (15:30)
--- NOTE | 2019-11-30 15:36 | Progress Note ---
DATE: 11/30/2019 SUBJECTIVE: The patient is postop day 2 for acute gangrenous cholecystitis, presenting in after a colonoscopy. 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 Plan is for him to go home probably later today with his HEIDI drain and then follow up with surgery as an outpatient. PHYSICAL EXAMINATION: GENERAL: The patient is sitting at bedside in no acute distress. VITAL SIGNS: Normal. He is afebrile. LABORATORY DATA: White count is 8.05, hemoglobin 13, platelets are 169,000. His liver profile is normal except for alkaline phosphatase which is slightly low at 37. IMPRESSION: The patient has acute cholecystitis, which he is doing well. He has had the partial thrombus and he will take Eliquis or another blood thinner. It is covered by his insurance for a total of 3 months and then stop.
--- NOTE | 2019-11-30 19:21 | Discharge Summary ---
Date of Service November 30, 2019 Admission HPI Per Admitting Provider Mr. Herbert Farias is a pleasant 64yo C male with history of HTN, PVCs presenting with abdominal pain. Patient had a routine colonoscopy performed yesterday by Dr. Gresham. He had a 15mm sessile polyp in the ileocecal valve, attempted removal with the hot snare. Incomplete resection. Also with a 5mm polyp at the appendicile orifice. Patient returned home in stable condition. He reports a lot of intraabdominal air. At first he couldn't pass gas. He has severe lower abdominal pain, burning and sharp, 8/10 in severity. Mostly in LLQ. No relief with passing gas. He had some nausea with no vomiting. No BM since yesterday. CT of the abdomen concerning for acute cholecystitis. ER Course: Tylenol, Dicyclomine, Fentanyl, Toradol, Reglan, Zofran, NSS Discharge Data Allergies Allergy/AdvReac Type Severity Reaction Status Date / Time No Known Allergies Allergy Unverified 11/28/19 01:37 Consultations 11/28/19 10:51 ED Decision to Admit Stat 11/28/19 15:14 Consult Gastroenterology Routine Consult General Surgery Routine Procedures Performed Operation Date: 11/28/19 20:00 Actual Procedures p Laparoscopic Cholecystectomy(Not Applicable) - Summer Beyer MD Ordered Studies 11/28/19 03:06 CT abd pelvis IV con only Urgent Total Time Total Time Spent Total Time Spent (In Minutes): Greater than 30 minutes Discharge Plan Discharge Items Patient Disposition: Home - Self-Care Reason For Visit: ABDOMINAL PAIN Discharge Diagnosis: Gangrene Gallbladder Condition on Discharge: Good Activity: Resume your previous activity Non-emergency contact: Primary Care Provider and Surgeon Call non-emergency contact if: you have any medication questions, your symptoms worsen and you have a fever Follow-up/Referrals: Hima Baca MD [Primary Care Provider] - Diet: Low Fat Addtl Attending Provider Instructions: Cholecystitis: - You were admitted for a gangrene gallbladder and had this removed in the hospital. - You were treated with IV antibiotics and will convert to Augmentin twice a day for 7 days. You had a dose in the hospital so only need one tonight and then resume twice a day tomorrow - You will have your drain left in until you see your surgeon on follow-up. Please see the instructions below from your surgeon - Recommend to continue to walk. We definitely want to avoid constipation. Given that you had a bowel prep for your colonoscopy it may be a day or so to have a normal bowel movement. Can use Colace (Docusate sodium) which is a stool softener you can buy over the counter. Take 100 mg twice a day. If getting constipated you can do Miralax once or twice a day. - Will give medication for pain. If tylenol does well then you can use that. Will give an opiate for severe pain but be mindful it can make you sleepy so do not drive a car. Be mindful that there is Tylenol in Percocet if you do take extra tylenol. Mesenteric Vein Thrombosis (Clot): - You will start on anticoagulation. You will take Eliquis 10 mg twice a day for 7 days. You had one dose today and can take the second dose at night. Then continue this for the next 6 days. Then you will take 5 mg twice a day for a total of 3 months. This can be followed by your doctor. - You have blood work pending to check for genetic factors that can put you at risk for blood clots. These can take some time to come back and you can follow- up with your family doctor for results when they return - Be mindful you are at increased risk for bleeding and bruising. If you get a cut apply and hold direct pressure for at least 5 minutes. YOu will clot but it can take a little longer. If you cant get bleeding to stop continue pressure and call 911. Kidney Number: - Your kidney number was a little bumped up likely some from dehydration and some from getting contrast for your scans. However this is back to normal and you are making good urine. Given that it is normal at this point we do not need to recheck it at this time. Addtl [employer]er Provider Instructions: Surgical discharge instructions: -No heavy lifting over 10 pounds for 2 weeks - No strenuous activity until cleared by surgeon - No submerging incisions underwater for 2 weeks (no bathing, swimming, or hot tubs) - No driving while taking narcotic pain medication - You may shower. Sponge bath around drain site. - Leave steri strips on incisions for 7 days and then remove. - You will go home with surgical drain. Monitor color and amount of output in daily basis and keep record. Bring record with you to surgical office. - You will be given prescription for narcotic pain medication. Take as directed. Medication can cause drowsiness and constipation. - May take extra strength Tylenol as needed for mild pain. DO NOT exceed 3,000 mg of Tylenol in 24 hour period. Percocet has 325 mg of Tylenol in each tablet. - Continue course of antibiotics as prescribed - You will need close follow-up in surgical office given drain. Please call office at [phone] to make an appointment in 1 week. Pending Studies at Discharge: Yes (Gallbladder pathology) Stand-Alone Forms: Call Back Authorization, [facility], Smoking Cessation Medications and DC Order Prescriptions: New amoxicillin-pot clavulanate [Augmentin] 875-125 mg Tablet 1 tab PO BIDM Qty: 13 RF: 0 oxycodone-acetaminophen [Percocet] 5-325 mg Tablet 1 tab PO Q4H PRN (Reason: pain) 3 Days Qty: 15 RF: 0 Eliquis 5 mg tablet See Rx Instructions .ROUTE .COMPLEX Qty: 70 RF: 0 Continued losartan 50 mg tablet 50 mg PO BID RF: 0 carvedilol 3.125 mg tablet 3.125 mg PO BID RF: 0 triamcinolone acetonide 0.025 % cream TOPICAL PRN (Reason: Rash) RF: 0 Discharge Orders: Discharge Order (Routine); Ordered 11/30/19 Ordered By: Ling Montenegro Admission Data Admit Date/Time: 11/28/19 11:37 Attending Provider: Ronnell Younger Admit Provider: Gretchen Gross Primary Care Provider: Hima Baca Other Providers: Gretchen Gross ; Joe Gresham ; Summer Beyer Other Interventions: Discharge Summary Assessment (RN) Last Done: 11/30/19 15:55 DC Date/Time DO NOT enter until pt leaves facility: 11/30/19 16:51 Coding Level of Care Code D/C Day Management >30 mins
== END 2019-11-30 16:51 | disposition home or self-care (01) | DRG 418 ==
LOC: ED 01:28 → SUATTDRO 11:37 → 3N 11:37